=== PATIENT | female | born 1950 | race Caucasian/White ===

== ENCOUNTER 2018-05-18 01:15 | Outpatient (CLI) | payer MEDICARE, OTHER, SELFPAY ==
[2018-05-18 10:12] LABS: Hemoglobin A1C 6.2 % (4.5-6.2)
[2018-05-18 10:21] LABS: TSH (W/Ref FT4) 0.91 uIU/mL (0.358-3.74)
== END 2018-05-18 01:35 ==
PROVIDERS: PCP Family Medicine; Visit Provider Family Medicine
DX: R73.01 Impaired fasting glucose (principal); E03.9 Hypothyroidism, unspecified
CPT/HCPCS: 36415; 83036; 84443

== ENCOUNTER 2022-09-23 17:09 | Outpatient (REF) | payer OTHER, SELFPAY ==
[2022-09-23 17:47] LABS: CREATININE 1.1 mg/dL (0.55-1.02); Estimated GFR 53.39 (mL/min/1.73m2)
[2022-09-23 17:54] LABS: Anion Gap 7.2 mmol/L (3-11); BUN 21 mg/dL (7-18); CO2 29.8 mmol/L (21.0-32.0); Calcium 9.8 mg/dL (8.5-10.1); Chloride 104 mmol/L (98-107); Estimated GFR 59.86 (mL/min/1.73m2); Glucose 96 mg/dL (74-106); Potassium 4.5 mmol/L (3.5-5.1); Sodium 141 mmol/L (136-145)
== END 2022-09-23 17:10 | disposition home or self-care (01) ==
LOC: NCHCN 17:09
PROVIDERS: PCP Family Medicine; Visit Provider Nurse Practitioner Family
DX: I10 Essential (primary) hypertension (principal); D35.2 Benign neoplasm of pituitary gland
CPT/HCPCS: 80048; 82565

== ENCOUNTER 2022-10-15 02:02 | Outpatient (CLI) | payer OTHER, SELFPAY ==
--- NOTE | 2022-10-15 | DI.MRI_ITS ---
Exam(s) MR BRAIN PITUITARY WO/W EXAM: MR BRAIN PITUITARY WO/W CLINICAL HISTORY: PITUITARY ADENOMA,D35.2,POSITIONAL HEADACHE,R51.9, TECHNIQUE: Multiplanar multisequence MRI of the brain was performed. CONTRAST MATERIAL: IV Contrast: 12 mL of Dotarem contrast administered. COMPARISON: No exams were available for comparison FINDINGS: The examination is limited due to patient motion artifact. VENTRICLES AND EXTRA AXIAL SPACES: Normal in size and morphology for the patient's age. HEMORRHAGE: None. CEREBRAL PARENCHYMA: No focus of restricted diffusion to suggest acute infarct. No space-occupying le mckayla identified. There are multiple areas of hyperintense signal seen in the white matter on the FLAI R and T2 weighted images consistent with small vessel ischemic disease. MIDLINE SHIFT: None. BRAINSTEM/CEREBELLUM: Normal. CALVARIUM: Normal. ENHANCEMENT: Please see the below section under pituitary. VISUALIZED PARANASAL SINUSES/MASTOIDS: Clear. [place] OF SAGE: Normal flow void. OTHER FINDINGS: PITUITARY: Pituitary stalk is midline. There is a homogeneously enhancing mass involving the pituitary gland whi ch measures 1.3 AP by 1.7 cc by 1.5 transverse cm. It does exert mild mass effect on the optic chias m resulting in upward bowing of the chiasm. There is no involvement of the adjacent internal carotid arteries. The cavernous portions of both carotid arteries are unremarkable. IMPRESSION: 1. 1.3 AP by 1.7 cc by 1.5 transverse cm homogeneously enhancing pituitary mass. It causes mild upwa rd bowing of the optic chiasm. Findings are consistent with a pituitary macro adenoma. 2. Findings consistent with age-related cerebral atrophy and small vessel ischemic disease. DATA REPOSITORY:
[2022-10-15] MEDS: Normal Saline Flush 10 ML SYR IVP (12:31)
== END 2022-10-15 02:22 ==
LOC: DI 02:03
PROVIDERS: PCP Family Medicine; Visit Provider Nurse Practitioner Family
DX: R51.9 Headache, unspecified (principal); D35.2 Benign neoplasm of pituitary gland; I67.89 Other cerebrovascular disease; G31.89 Other specified degenerative diseases of nervous system; R41.3 Other amnesia
CPT/HCPCS: 70553

== ENCOUNTER 2022-12-25 03:13 | Outpatient (CLI) | payer OTHER, SELFPAY ==
--- NOTE | 2022-12-25 13:45 | DI.MRI_ITS ---
Exam(s) MR LOWER JOINT RT WO EXAM: MR LOWER JOINT RT WO CLINICAL HISTORY: RT KNEE PAIN, M25.561, INSTABILITY WITH WALKING TECHNIQUE: Multiplanar multisequence MRI of the knee was performed. COMPARISON: There are no plain films available time this MRI interpretation FINDINGS: EFFUSION: There is a moderate size knee joint effusion. There is a Oh cyst in the popliteal fossa which measures 6 cm length by 1.4 cm AP by 1 cm wide. It exhibits internal septations does not appe ar ruptured. MARROW:No evidence of fracture or prominent bone contusion. There are subarticular multiple degenera tive subarticular cysts in the medial compartment and marginal osteophytes. There are also degenerat skye cysts in the lateral aspect of the patella. PATELLOFEMORAL COMPARTMENT: The quadriceps tendon is intact. The patellar ligament is intact. There is full-thickness thinning of the retropatellar cartilage over the medial facet. Subarticular cysts seen posteriorly in the patella at this level. There are multiple tiny benign cysts within the lateral aspect of the patella at and above the midline with some surrounding edema. There is only m inimal cartilage narrowing over this level. CRUCIATE LIGAMENTS: The anterior cruciate ligament is intact.The posterior cruciate ligament is intac t. MEDIAL COMPARTMENT/MEDIAL MENISCUS: There is tearing involving both anterior posterior horns of the m edial meniscus. The anterior horn of the medial meniscus is significantly attenuated and extruded. Majority of the anterior horn lies between the marginal osteophytes. It exhibits prominent signal ab normality. The posterior horn of the medial meniscus exhibits complex outer 3rd tearing. The root i s intact. There is extrusion of the meniscus. Results in outward bowing of the MCL... There is full-thickness cartilage thinning over the entire weight-bearing surface of the medial femor al condyle and medial tibial plateau. Large marginal osteophytes noted. Degenerative subarticular c ysts are seen in in the medial femoral condyle. MEDIAL COLLATERAL LIGAMENT: Outward bowing noted. This results in some attenuation but there is no h igh-grade tear of the MCL. LATERAL COMPARTMENT/LATERAL MENISCUS: There is no evidence of lateral meniscal tear.Significantly les s cartilage thinning over the lateral femoral condyle and lateral tibial plateau, when compared to th e medial compartment. There are, however, marginal osteophytes also noted off the lateral compartmen t. ILIOTIBIAL BAND: Intact LATERAL COLLATERAL LIGAMENT COMPLEX: The fibular collateral ligament is intact. The biceps femoris t endon is intact.Popliteus muscle and tendon are intact. IMPRESSION: 1. Advanced degenerative changes in the medial compartment with full-thickness cartilage thinning and complex tearing of the anterior and posterior horns of the medial meniscus as well as some meniscal exclusion to level subjacent to the prominent marginal osteophytes at this level. Subarticular edema and degenerative subarticular cysts noted in medial compartment. 2. Significant patellofemoral compartment chondromalacia changes with full-thickness thinning of the retropatellar cartilage over the medial facet and moderate-advanced thinning over the lateral facet. Multiple small contiguous cysts are noted in the outer aspect of the patella with mild surrounding i ntraosseous edema. No evidence of quadriceps or patellar ligament tears. 3. Anterior and posterior cruciate ligaments are intact. No collateral ligament tears. The MCL is b owed outward by the osteophyte and meniscal findings in the medial compartment but there is no high-g rade tear of the medial collateral ligament. 4. Significantly milder degenerative changes in the lateral compartment and without obvious meniscal tear in the lateral compartment. Lateral collateral ligament complex is intact. DATA REPOSITORY:
== END 2022-12-25 03:33 ==
PROVIDERS: PCP Family Medicine; Visit Provider Nurse Practitioner Family
DX: M25.561 Pain in right knee (principal); S83.231A Complex tear of medial meniscus, current injury, right knee, initial encounter; M25.761 Osteophyte, right knee
CPT/HCPCS: 73721

== ENCOUNTER 2023-03-03 11:42 | Outpatient (REF) | payer OTHER, SELFPAY ==
[2023-03-03 16:23] LABS: ALT 17 U/L (14-59); AST 24 U/L (15-37); Albumin 3.7 g/dL (3.4-5.0); Alkaline Phosphatase 125 U/L (46-116); Anion Gap 11.5 mmol/L (3-11); BUN 24 mg/dL (7-18); Bilirubin, Total 0.4 mg/dL (0.2-1.0); CO2 23.5 mmol/L (21.0-32.0); CREATININE 1.1 mg/dL (0.55-1.02); Calcium 9.3 mg/dL (8.5-10.1); Chloride 104 mmol/L (98-107); Estimated GFR 53.39 (mL/min/1.73m2); Glucose 128 mg/dL (74-106); Potassium 4.4 mmol/L (3.5-5.1); Sodium 139 mmol/L (136-145); TSH 0.44 uIU/mL (0.36-3.74); Total Protein 7.1 g/dL (6.4-8.2)
== END 2023-03-03 11:43 | disposition home or self-care (01) ==
LOC: NCHCN 11:42
PROVIDERS: PCP Family Medicine; Visit Provider Nurse Practitioner Family
DX: I10 Essential (primary) hypertension (principal); E03.9 Hypothyroidism, unspecified
CPT/HCPCS: 80053; 84443

== ENCOUNTER → 2023-04-01 03:02 | Outpatient (CLI) | payer OTHER, SELFPAY ==
--- NOTE | 2023-04-01 10:45 | DI.MAMMO_ITS ---
Exam(s) MG MAMMO SCREENING 60 MIN DUR EXAM: MG MAMMO SCREENING 60 MIN DUR CLINICAL HISTORY: SCREENING FOR BREAST CANCER Z12.39 TECHNIQUE: Bilateral full field digital CC and MLO mammographic images were obtained with 3D tomosyn thesis and utilizing computer aided detection (CAD). COMPARISON: There are no priors for comparison at this time. FINDINGS: Masses/Architectural Distortion: Status post left lumpectomy. No suspicious masses or areas of archi tectural distortion. Microcalcifications: No suspicious pleomorphic-type are seen. Skin Thickening/Nipple Retraction: None. IMPRESSION: 1. No significant interval change with no specific features of malignancy noted. 2. Unless there is more urgent need, screening mammography is recommended, as per [employer] guidelines. BI-RADS Category 2 - Benign Findings Breast Density - Category B - Scattered areas of fibroglandular density Breast density category C or D implies that the patient has dense breast tissue. Dense breast tissue is very common and is not abnormal but dense breast tissue can make it harder to find cancer on a ma mmogram. Also, dense breast tissue may increase their breast cancer risk. This information about the result of the mammogram report was provided to the patient to raise their awareness. Use this report when you speak with the patient about their risks for breast cancer, which includes their family hist ory. At that time, you may recommend for more screening tests (Ultrasound or MRI) as they might be us eful based on their risk. A negative radiographic report should not delay biopsy if a dominant or clinically suspicious mass is present. Up to ten percent of cancers are not identified on mammography. A negative report may reinforce clinical impression. Adenosis and dense breasts may obscure an underlying neoplasm. False positive reports average 6 to 10%. Patient will receive a letter notifying them of these results.
== END ==
PROVIDERS: PCP Family Medicine; Visit Provider Nurse Practitioner Family
DX: Z12.31 Encounter for screening mammogram for malignant neoplasm of breast (principal)
CPT/HCPCS: 77063; 77067

== ENCOUNTER 2023-05-22 11:02 | Outpatient (CLI) | payer OTHER, SELFPAY ==
--- NOTE | 2023-05-22 11:28 | DI.RAD_ITS ---
Exam(s) XR STANDING ALIGNMENT XR KNEE RT 1V EXAM: XR STANDING ALIGNMENT CLINICAL HISTORY: knee pain. TECHNIQUE: 2D digital imaging was performed. Standing AP views were performed from the pelvis throu gh the ankles. COMPARISON: CR LEFT FOOT LIMITED from 03/17/2016 CR RIGHT FOOT LIMITED from 03/17/2016 CR XR KNEE RT 1V from 05/22/2023 FINDINGS: BONES: No acute fracture is present. No bony destructive lesion is seen. Leg length discrepancy: The right femoral head projects few millimeters superior to the left. JOINTS: Knees: Left knee prosthesis. No abnormal surrounding bony lucencies. Satisfactory alignment . Right knee shows severe degenerative changes of the medial femoral tibial joint space with promine nt periarticular spurring. Degenerative changes are also noted at the patellofemoral joint. Chondro calcinosis is present. The ankle joints are unremarkable. Hips: Mild degenerative changes of the right hip. Moderate joint space narrowing of the left hip how ever periarticular spurring and subchondral cyst formation of the superior acetabulum. SOFT TISSUE: Vascular clips medial right upper leg. Venous varicosities on the right. IMPRESSION: Severe degenerative changes of the right knee. Mild overall leg length discrepancy. DATA REPOSITORY: RADIATION DOSE DELIVERED:
== END 2023-05-22 11:03 | disposition home or self-care (01) ==
LOC: DIORS 11:02
PROVIDERS: PCP Nurse Practitioner Family; Referring Provider Family Medicine; Visit Provider Student in an Organized Health Care Education/Training Program
DX: M17.11 Unilateral primary osteoarthritis, right knee; Z96.652 Presence of left artificial knee joint
CPT/HCPCS: 99203; 73560; 77073

== ENCOUNTER → 2023-07-16 08:09 | Outpatient (BNVA) | payer OTHER, SELFPAY | PROVIDERS: PCP Nurse Practitioner Family; Referring Provider Nurse Practitioner Family | DX: Z01.818 Encounter for other preprocedural examination (principal); M17.11 Unilateral primary osteoarthritis, right knee ==

== ENCOUNTER 2023-07-16 09:45 | Outpatient (CLI) | payer OTHER, SELFPAY ==
[2023-07-16 09:45] LABS: HCT 45.6 % (36.0-46.0); HGB 14.8 g/dL (11.2-15.7); MCH 29.6 pg (27.0-33.0); MCHC 32.5 % (32.0-36.0); MCV 91 fL (80-95); MPV 10.3 fL (8.0-11.0); Platelet Count 264 10^3/uL (130-400); RDW 13.2 % (11.7-14.6); RDW-SD 43.8 fL; WBC 5.64 10^3/uL (4.4-10.8)
[2023-07-16 10:00] LABS: Anion Gap 10.9 mmol/L (3-11); BUN 26 mg/dL (7-18); CO2 27.1 mmol/L (21.0-32.0); CREATININE 1.1 mg/dL (0.55-1.02); Calcium 9.8 mg/dL (8.5-10.1); Chloride 102 mmol/L (98-107); Estimated GFR 53.06 (mL/min/1.73m2); Glucose 120 mg/dL (74-106); Potassium 4.1 mmol/L (3.5-5.1); Sodium 140 mmol/L (136-145)
== END 2023-07-16 09:46 | disposition home or self-care (01) ==
LOC: LBO 09:46
PROVIDERS: PCP Nurse Practitioner Family; Visit Provider Student in an Organized Health Care Education/Training Program
DX: Z01.818 Encounter for other preprocedural examination (principal); M17.11 Unilateral primary osteoarthritis, right knee
CPT/HCPCS: 36415; 80048; 85027

== ENCOUNTER 2023-08-05 16:26 | Observation (INO) | payer OTHER, SELFPAY ==
[2023-08-05] VITALS (11 sets, daily range): BP systolic 114–187; BP diastolic 57–86; PULSE 52–71; RESP 16–20; TEMP 36.2–37.2; O2SAT 95–99; BMI 26.4
--- NOTE | 2023-08-05 07:34 | W.ANESPRE ---
General Info Date of Service Date Performed: 08/05/23 Height: 5 ft Weight: 61.5 kg Body Mass Index (BMI): 26.4 Surgical Procedure: Operation Date: 08/05/23 09:55 Proposed Procedure Side Surgeon p Knee Total Arthroplasty, Cementless CR Right Francis Fowler MD Meds Allergies and Home Medications Allergies Allergy/AdvReac Type Severity Reaction Status Date / Time egg yolk Allergy Severe severe Unverified 08/05/23 07:13 vomiting,cramps venom-honey bee Allergy Severe Anaphylaxsi Unverified 08/05/23 07:13 [bee venom (honey bee)] s adhesive Allergy Intermediate Swelling/Ed Unverified 08/05/23 07:13 vinicius chlorpheniramine maleate Allergy Intermediate Hives Unverified 08/05/23 07:13 [From Chlor-Trimeton] oxycodone HCl [From Percocet] Allergy Intermediate muscle Unverified 08/05/23 07:13 aches Penicillins Allergy Intermediate Hives Unverified 08/05/23 07:13 oxycodone terephthalate AdvReac Intermediate muscle Unverified 08/05/23 07:13 [From Percodan] aches codeine AdvReac Mild sensitive, Unverified 08/05/23 07:13 a little goes a long way morphine AdvReac Mild sensitive, Unverified 08/05/23 07:13 a little goes a long way heparin (porcine) AdvReac Unknown Swelling/Ed Unverified 08/05/23 07:13 [heparin,porcine] vinicius Home Medication Medication Instructions Recorded levothyroxine 50 mcg tablet 50 mcg PO DAILY 08/24/13 propylene glycol 1 %-glycerin 0.3 1 drp OU PRN PRN 08/24/13 % eye drops (Artificial Tears (glycerin-peg)) lisinopril 20 1 tab PO DAILY 03/18/23 mg-hydrochlorothiazide 12.5 mg tablet Current Visit Medications: Current Medications Generic Name Dose Route Start Last Admin Trade Name Freq PRN Reason Stop Dose Admin Acetaminophen 1,000 mg 08/05/23 07:15 Acetaminophen 500 Mg Tab PO 09/04/23 07:14 PREOP VENUS Celecoxib 400 mg 08/05/23 07:15 Celecoxib 200 Mg Cap PO 09/04/23 07:14 PREOP VENUS Gabapentin 300 mg 08/05/23 07:15 Gabapentin 300 Mg Cap PO 09/04/23 07:14 PREOP VENUS Ringer's Solution 1,000 mls @ 80 mls/hr 08/05/23 06:00 IV 08/05/23 23:59 INFUSION VENUS Cefazolin Sodium/Dextrose 2 gm in 50 mls @ 100 mls/hr 08/05/23 06:00 Ancef Duplex IVPB 08/05/23 23:59 PREOP VENUS Tranexamic Acid 1,000 mg/ 60 mls @ 360 mls/hr 08/05/23 06:00 Sodium Chloride IV 08/05/23 23:59 PREOP VENUS IV Miscellaneous Supplies 1 each 08/05/23 06:00 Iv Access IV 08/05/23 23:59 DIRECTED VENUS Sodium Chloride 0 ml 08/05/23 06:00 Normal Saline Flush 10 Ml Syr IV 08/05/23 23:59 PRN PRN Sodium Chloride 0 ml 08/05/23 06:00 Normal Saline 10 Ml Vial IJ 08/05/23 23:59 DIRECTED PRN Sterile Water 0 ml 08/05/23 06:00 Water,Injection,Sterile 10 Ml Vial IJ 08/05/23 23:59 DIRECTED PRN PFSH Active Problems Active Problems: Problem Status Onset Code Arthritis of right knee M17.11 Fibromyalgia M79.7 Anxiety F41.9 Asthma, exercise induced J45.990 Pituitary adenoma D35.2 Medical History Medical History History of adenomatous polyp of colon History of pulmonary embolus (PE) Per pt. states when she was in here early 20's she had a blood clot in her leg that traveled to her lungs Memory impairment Hypertension Constipation Tubular adenoma of colon (08/11/17) Rectocele (02/20/14) h/o DVT/PE breast cancer Breast cancer Hypothyroid Rheumatoid arthritis Surgical History Surgical History Replacement of total knee joint Repair of umbilical hernia Diagnostic Laproscopy x 3 for endometriosis Colonoscopy - MAC (08/11/17) Breast, Mastectomy reconstruction Tobacco Smoking/Tobacco Use Status: Never Substance Use Substance use: Never Substance use type: does not use Vital Signs and Lab Results Vital Signs Most Recent Vital Signs in EMR: Most Recent Vital Signs Temp Pulse BP Pulse Ox 36.2 C L 57 L 187/78 H 99 08/05/23 07:07 08/05/23 07:07 08/05/23 07:07 08/05/23 07:07 Lab Results Blood Type / Crossmatch: No Data to Display Complete Blood Count: White Blood Count 5.64 10^3/uL (4.4-10.8) 07/16/23 09:21 Red Blood Count 5.00 10^6/uL (3.93-5.22) 07/16/23 09:21 Hemoglobin 14.8 g/dL (11.2-15.7) 07/16/23 09:21 Hematocrit 45.6 % (36.0-46.0) 07/16/23 09:21 Platelet Count 264 10^3/uL (130-400) 07/16/23 09:21 Complete Metabolic Panel: Sodium 140 mmol/L (136-145) 07/16/23 09:21 Potassium 4.1 mmol/L (3.5-5.1) 07/16/23 09:21 Chloride 102 mmol/L (98-107) 07/16/23 09:21 Carbon Dioxide 27.1 mmol/L (21.0-32.0) 07/16/23 09:21 BUN 26 mg/dL (7-18) H 07/16/23 09:21 Creatinine 1.1 mg/dL (0.55-1.02) H 07/16/23 09:21 Est GFR (CKD-EPI 2020) 53.06 (mL/min/1.73m2) 07/16/23 09:21 Calcium 9.8 mg/dL (8.5-10.1) 07/16/23 09:21 Glucose 120 mg/dL (74-106) H 07/16/23 09:21 Liver Function Panel: No Data to Display Coagulation Panel: No Data to Display Cardiac Panel: No Data to Display Arterial Blood Gas: No Data to Display Venous Blood Gas: No Data to Display Pancreas Panel: No Data to Display Thyroid Panel: No Data to Display Infectious Disease: No Data to Display Blood Cultures: No Data to Display Toxicology Panel: No Data to Display Anesthesia Assessment and Plan Anesthesia History Personal History: No History of Anesthesia Complications Family History: No Family History of Anesthesia Complications Exercise Tolerance Exercise Tolerance: Metabolic Equivalents>4 Pertinent Negatives Pertinent Negatives: No Symptoms of GERD, No Major Cardiovascular Symptoms or Complaints and No Major Pulmonary Symptoms or Complaints Cardiac & Pulmonary Exam Cardiac Exam: Normal S1/S2 Heart Sounds Pulmonary Exam: Clear Bilateral Breath Sounds Implantable Cardiac Device Does patient have a Pacemaker or an ICD?: No Airway Exam Known Difficult Airway: No Mallampati Class: 2 Mouth Opening: Normal (> 3cm) Thyromental Distance: Greater than 3 cm Neck Range of Motion: Full ROM Neck Circumference: Normal Teeth Condition: Normal Dentition ASA Classification ASA Score: ASA 3 Emergency Case?: No NPO Status NPO Status: NPO Clears >2 hours, Solids >8 hours Anesthesia Plan Resuscitation Status: Full Code Anesthesia Technique: Spinal Anesthesia Airway Planned: Natural Airway Pain Management: Surgeon and patient request nerve block Monitors Used: Standard Monitors
[2023-08-05] MEDS: Acetaminophen 500 MG TAB 1000 MG PO ×2 (07:35→19:44)
[2023-08-05] MEDS: Celecoxib 200 MG CAP 400 MG PO (07:35)
[2023-08-05] MEDS: Gabapentin 300 MG CAP PO ×2 (07:35→21:17)
[2023-08-05] MEDS: Lactated Ringers 1,000 ML 80 ML IV (07:53)
[2023-08-05] MEDS: ceFAZolin 2 GM/50 ML BAG IVPB (08:25)
--- NOTE | 2023-08-05 08:26 | W.PM.DSUDISC ---
Date of service: 08/05/23 Time of Service: 08:26 Discharge Plan Disposition Condition: Good Discharge Details Reason For Visit: R TKR Admit Date/Time: 08/05/23 16:26 Admit Provider: Francis Fowler Attending Provider: Francis Fowler Primary Care Provider: Inna Arredondo Home Meds and New Rx's Prescriptions: New celecoxib 200 mg capsule 200 mg PO BID Qty: 60 0RF tramadol 50 mg tablet 50 mg PO Q4H PRNQty: 20 0RF acetaminophen 500 mg tablet 1,000 mg PO TID Qty: 90 3RF pantoprazole 40 mg tablet,delayed release (DR/EC) 40 mg PO DAILY Qty: 30 0RF dexamethasone 4 mg tablet 4 mg PO DAILY Qty: 2 0RF gabapentin 300 mg capsule 300 mg PO QHS Qty: 14 0RF aspirin 81 mg tablet,delayed release (DR/EC) 81 mg PO BID Qty: 60 0RF Continued lisinopril-hydrochlorothiazide 20-12.5 mg tablet 1 tab PO DAILY levothyroxine 50 MCG tablet 50 mcg PO DAILY Artificial Tears(glycerin-peg) 15 ML drops 1 drp OU PRN PRN Discharge Instructions Additional Instructions: Total Knee Discharge Instructions Activity: The most important activity is to walk and to work on gentle motion (both flexion and extension). You should try to take short walks a few times a day. It is important that when resting you work on keeping the knee straight. Avoid putting a pillow behind the knee as this will encourage flexion. Work on range of motion exercises as provided by Physical Therapy. - Start outpatient physical therapy within 2 weeks. - You should wear the GENIA hose on both legs for 2 weeks. You may remove these at night. You may also use any compression sock in place of the GENIA hose. - Utilize [employer] to review exercises, see videos on exercises and obtain basic information pertaining to your surgery and your recovery. Dressing: Remove the David wrap by 2 days after your surgery and put on the GENIA stocking given to you from the hospital. Keep the surgical dressing (underneath the DAVID wrap) in place for at least one week. After the first week it may be removed and replaced with light gauze and tape or nothing. The wound and dressing may get wet after 3 days but avoid soaking the dressing or otherwise it will need to be changed. Many people prefer covering the dressing with cling wrap (saran wrap) to minimize it from getting soaked. If it gets wet, just pat dry. If it starts to peel off then it will need to be changed. Medications: - You should take Tylenol and anti-inflammatory Celebrex as your primary pain control medications. If the Celebrex is too expensive or not covered, please call the office for another alternative (Advil/Ibuprofen or Naproxen/Aleve) - You have been prescribed a stronger pain medication tramadol for breakthrough pain, take as needed as prescribed. - You have also been prescribed a stomach acid reduction agent Pantoprozole to help reduce stomach acid and reflux. - You have been prescribed Gabapentin to take at night for restlessness and nerve pain. - You will be taking Aspirin 81mg twice a day for DVT prevention unless instructed otherwise. - You have also been prescribed Decadron to take to control post-operative nausea and pain. You will start this tomorrow. - If you have constipation you should take Colace or Miralax (both [id number]). It takes most people 3-4 days to have a bowel movement. Follow-up: 2 weeks If you have any acute concerns or questions, please do not hesitate to contact the office at [phone]. You may contact Dr. Fowler with any questions after hours through the hospital at [phone] or on his cell phone at [phone]. Stand Alone Forms: Anesthesia Discharge Inst., Kylahs.Nerve Block Instructions, Migel Doshi (DSU) Referrals: Francis Fowler MD [ [facility] STAFF PHYSICIAN] - 08/17/23 1:00 pm Equipment/Supplies: Walker Activity:: Activity as Tolerated Shower/Bathe:: 72 hours Diet:: As Tolerated DS: Diagnosis Discharge Diagnosis (1) Arthritis of right knee: Status: Resolved
--- NOTE | 2023-08-05 08:55 | W.ANESNERVE ---
Nerve Block Single Injection Procedure Date and Time Date Performed: 08/05/23 Procedure Start: 08:15 Location Where Procedure Performed Procedure Location: Day Surgery Unit Reason Performed: Postoperative Analgesia Requesting Provider: Francis Fowler Timeout Performed Timeout Performed: Yes Monitoring Used ECG, Blood Pressure, SpO2 and See EMR for corresponding vital signs Sterility Sterility: Hand Hygiene, Surgical Cap, Surgical Mask, Sterile Gloves and Chlorhexidine Sedation Given During Procedure Sedation Given (Indicate Dose Given): No Sedation given Patient Mental Status Patient Mental Status: Awake Nerve Block 1st Nerve Block: Laterality: Right Block Type: Adductor Canal Ultrasound Image Saved?: Yes Needle / Catheter Used: 100mm SonoPlex II Local Anesthetic Bolus (Indicate Dose Given): Lidocaine used for local infiltration of skin, Injected in 3-5ml increments after negative blood aspiration and Bupivacaine 0.25% Dose:: 20ml Additives (Indicate Dose Given): None Ultrasound: Sterile probe cover and gel used Nerve Stimulator: Not Used Paresthesia: None Procedure Tolerated: No Complications and Patient tolerated well Procedure Outcome: Successful Performed By: Jose Jefferson
--- NOTE | 2023-08-05 10:53 | W.PM.OP ---
Date of service: 08/05/23 Time of Service: 08:30 Operative Note Operative Note DATE OF PROCEDURE: 08/05/23 PRE-OP DIAGNOSIS: Right Knee Osteoarthritis POST-OP DIAGNOSIS: same PROCEDURE: Right Total Knee Replacement SURGEON: Francis Fowler HIGH VALUE ASSOCIATE: Ponce Brewer ANESTHESIA TYPE: Spinal Refer to Anesthesia Record ESTIMATED BLOOD LOSS: 100 PATHOLOGY: none sent TOURNIQUET TIME: 0 COMPLICATIONS: None Patient was transported to: PACU Patient's condition: stable Implants: 1. Depuy Attune Cementless Cruciate Retaining Femoral Component, Size 5 2. Depuy Attune Cementless Fixed Bearing Tibial Component, Size 4 3. Depuy Attune 5x6 CR/FB Poly 4. Depuy Attune Patellar Component, Size 35 Indications: I have seen Shu in clinic for symptoms of knee arthritis, confirmed with radiographic findings. She has exhausted nonoperative methods and was having significant limitations in daily function and desired better function and less pain. I discussed the technical details of a knee replacement. I explained the risks of the procedure to include, but not limited to, bleeding, infection, pain, stiffness, fracture, damage to nerves and vessels, damage to muscles and tendons, loosening, need for repeat procedure, blood clot and cardiopulmonary demise. Despite these risks, Shu elected to proceed. Findings: There was significant signs of arthritis throughout the knee with osteophytes throughout. Procedure Description: Shu was greeted in the preoperative holding area where the correct side was identified and marked. The consent was reviewed with the patient and signed. The history and physical was updated. All questions were answered. Preoperative medications were administered: Acetaminophen 1000mg, Celebrex 400mg, and Gabapentin 300mg. An adductor canal block was then administered by the anesthesia team in the [facility]. She was taken back to the operating room. A spinal anesthestic was then administered. The patient was placed into the supine position on the operating room table. A nonsterile tourniquet was placed high onto the leg but only used for cementing. Posts were placed for positioning during the procedure. All bony prominences were well padded. Prophylactic antibiotics in the form of Cefazolin were administered. 1g of Tranxemic Acid was given intravenously within 30 minutes of incision. The right leg was then prepped with Chloraprep and draped in a standard fashion with impervious stockinette. A second prep with Chloraprep was performed prior to application of Iodine impregnated skin protection. A timeout to confirm correct identity, side and site, procedure, allergies, anesthesia, and medical concerns was performed. With the knee in some flexion, a midline incision was made overlying the knee. Full thickness skin flaps were raised once the extensor mechanism was encountered. These were raised medially and laterally. Any bleeding was controlled with electrocautery. Once the extensor mechanism was fully exposed, a medial parapatellar arthrotomy was performed in a flexed position. All bleeding from the arthrotomy and the geniculate arteries was coagulated. A medial subperiosteal peel was performed with electrocautery to the midcoronal plane. The fat pad was removed while keeping the patellar tendon protected. The anterior distal femur synovium was removed for later visualization. The ACL and PCL were resected and the anterior horn of the lateral meniscus was transected. The knee was then flexed with the patella everted. Large osteophytes from the tibia were removed. Large osteophytes from the femur were removed. Using a step drill, and based on preoperative templating, the femoral canal was entered. This was done with a step drill without any difficulty. The intramedullary distal femoral cut guide was inserted, set to a 5 degree valgus cut and 9mm cut thickness. The distal femoral cut guide was then held in position and pinned. With the soft tissues protected, the distal cut was performed. This was passed over a few times to ensure a planar cut. I then turned attention to the tibia. The extramedullary guide was placed onto the leg. The distal aspect was slid medial to adjust for position of center of ankle and stay in line with shaft of the tibia. Approximately 3-5 degrees of posterior slope was kept in the proximal cutting guide. The center of the guide was aligned with the PCL. The stylus was used to assess cut thickness. The medial side, most involved side, was set for a 4mm cut. This was then held in position and pinned into place with 2 additional pins and a cross pin for stability. The medial and lateral collateral ligaments were protected and the cut was performed. With this completed, it was assessed and noted to be of appropriate dimensions. The guide was removed. A spacer block was inserted and the knee was brought into extension. The 6mm spacer block provided full extension, without hyperextension and with stability of both the medial and lateral collateral ligaments was assessed. The pins from the femur and the tibia were then removed. The distal femur was then sized. The anterior stylus was placed onto the lateral ridge of the anterior femur. This indicated a size 5 femur. The external rotation of the guide was adjusted to 3 degrees to match the epicondylar axis, perpendicular to Cassie?s line. The 4-in-1 cutting guide was the placed. The posterior medial femur cut was evaluated and appeared of good thickness. The spacer block was inserted underneath the cutting guide and stability was confirmed in 90 degrees of flexion. An sary wing was used to confirm appropriate position of the anterior cut to avoid notching. This cutting guide was ensured to be flush on the cut surface and then pinned into place with headed pins. While protecting the soft tissues, quad tendon, and collateral ligaments, the anterior and posterior cuts were performed with a saw. The central two pins were removed and the posterior and anterior chamfers were cut next. The notch-cutting guide was placed. This was pinned to lateralize the femoral component as much as possible while keeping it flush on the cut surface. This was then pinned into position. A reciprocating saw was used to make the notch cut. A rasp smoothed the cut surfaces. The medial and lateral menisci were removed. A trial femoral component was then inserted, impacted down to the cut surfaces, and the lug holes were drilled. A provisional trial tibial component was placed and the knee was brought through range of motion. There was noted to be excellent extension and flexion. There was no significant instability. The patella was tracking without thumbs. A size 6mm polyethylene component provided the best range of motion and stability with less than 2mm gapping with medial and lateral stress and full extension without significant hyperextension. The tibial cut surface was fully exposed. The tibia was then sized as a 4. The tibia had been previously marked during trialing to correspond to the center of the tibial component to help with rotation. The trial was aligned to this ponce, approximately rotated to the medial 1/3rd of the tibial tubercle. The trial was pinned into place. The tibia was prepared with a reamer and a keel punch and lug holes. The knee was then brought into extension and the patella was measured as 22mm. Using the patellar clamp and cut guide, this was resected to a flat surface with at least 13mm of thickness remaining. The size 35 patella fit the best. This was oriented and then clamped into position. The lugs were drilled. The trial components were removed. The final components were opened on the back table. The periosteal and capsular tissues, especially posteriorly, around the knee were then systematically injected with a periarticular cocktail consisting of 246mg of Ropivacaine, 0.5mg of Epinephrine, 0.08mg of Clonidine, and 30mg of Ketorolac, diluted to 100cc. On the back table, with the implants opened, the cement was mixed. One batch of high viscosity cement was prepared with vacuum assistance. After the cement was ready a small amount was placed on the cut surface of the patella and the patellar button was clamped into position and held. While the cement was hardening, the cementless knee components were placed. Starting with the tibial component, the tibia was subluxed anteriorly and the lug holes of the component were lined up. The tibia was then impacted with an impactor and mallet until the tibial component was in contact with the tibia. The final polyethylene component was inserted. Then, the femoral component was inserted. The lug holes were aligned and the component was impacted into position. The knee was irrigated with Irrisept Chlorhexadine solution. This was allowed to sit in the knee for 3 minutes and then it was irrigated out with saline. After the cement had finally cured, approximately 15min, the clamp was removed from the patella and the knee was taken through range of motion. The patella was tracking with a no-thumbs technique. The capsule was then reapproximated with a No. 1 Vicryl at multiple locations. The capsule was finally closed with a No. 2 Stratafix, barbed suture. The second dosing of 1g TXA was started. Deep tissues were then reapproximated with 0 Vicryl and 2-0 Vicryl. The skin was closed with a running 3-0 Monocryl in a subcuticular fashion. This was reinforced with skin glue. A Mepilex silver dressing was applied along with a [id number] ELVER wrap. A CryoCuff was applied. Shu was transferred to the hospital bed without difficulty an suffering no apparent complication. Shu has a good prognosis. Physical therapy will start today and without restrictions, weight-bearing as tolerated. Aspirin 81mg BID will be used for DVT prophylaxis.
--- NOTE | 2023-08-05 11:42 | IN_ITS ---
PT Notes Visit Reasons: R TKR Physical Therapy Day Surgery Initial Evaluation Date: 08/05/2023 Referring Doctor: KANDACE Palomino PT Orders: PT CONSULT: S/P Ortho Surgery Precautions: WBAT on the R LE with AD. Patient Profile/Admitting Diagnosis: Shu is a 73-year-old female with degenerative joint disease of the right knee and status post right total knee arthroplasty on postoperative day 0. PMHX: Medical History History of adenomatous polyp of colon History of pulmonary embolus (PE) Memory impairment Hypertension Constipation Tubular adenoma of colon (08/11/17) Rectocele (02/20/14) h/o DVT/PE Breast cancer Hypothyroid Rheumatoid arthritis Surgical History Replacement of total knee joint Repair of umbilical hernia Diagnostic Laproscopy x 3 for endometriosis Colonoscopy - MAC (08/11/17) Breast, Mastectomy reconstruction Social History/Home Situation: Lives with in a private home with no steps to enter but with 5 steps leading to patient's bathroom inside the house with a rail on one side. Independent with all aspects of ADLs prior to surgery although has had increasing difficulty with mobility performance due to worsening arthritis. Equipment Owned/DME: [facility] Subjective: Complains of tingling in the R foot and numbness on the knee and proximal leg. [place] a little lightheaded. Pain at 5 /10 at beginning of session, 2-3/10 with weight bearing mostly at the knee with terminal knee extension at midstance on R. Objective: General Observation: Resting in bed. Aidan present throughout session. ELVER wraps to right LE. TEDS to left leg. Mental Status: A and O x 4, somewhat slow with following instructions related to maybe post op status? (unsure of baseline cognition) Pain: As above ROM: Right Lower Extremity: Hip flexion WFL. Hip abduction WFL. Knee flexion 30 degrees to 80 degrees. Knee extension -30 degrees. Ankle dorsiflexion WFL. Ankle plantarflexion WFL. Left Lower Extremity: Hip flexion WFL. Hip abduction WFL. Knee flexion WFL. Ankle dorsiflexion WFL. Ankle plantarflexion WFL. Strength: Right Lower Extremity: Hip flexors 4/5. Hip abductors 4/5. Knee flexors 3-/5. Knee extensors 3-/5. Ankle dorsiflexors 5/5. Ankle plantarflexors 5/5. Left Lower Extremity:Hip flexors 5/5. Hip abductors 5/5. Knee flexors 5/5. Knee extensors 5/5. Ankle dorsiflexors 5/5. Ankle plantarflexors 5/5. Sensation: Numbe on the R knee and proximal anterrior and front leg; paresthesia in R foot Bed Mobility/Transfers: Minimal cueing provided for use of B hands as needed for support, movement sequence, Ad management, and and posture to reduce fall risk and minimize pain report. Sit to stand minimal assist of 2 (PT and Nurse Sheela) and close wheelchair follow of BISHNU Pollock. Stand to sit minimal assist Bed to chair minimal assist of 2 Gait: Facilitated safe and correct performance of level surface ambulation covering a distance of up to 80 feet using front-wheeled walker with minimal assist of 2 and close wheelchair follow-up by BISHNU Pollock. Repetitive buckling seen needing assistance of two and moderate verbal cueing for limb advancement, R knee locking, weight shifting, AD management, and posture to minimize falling. Patient had difficulty following movement sequence throughout. Appeared having difficulty following recommended sequence for safe limb advancement despite simple, slow, and repetitive provision of instructions. Stairs: Guided patient with safe and correct negotiation of 3 x 4 inch steps and 2 x 6 inch steps while holding onto bilateral rails with minimal assist of 2 and moderate to maximal verbal cueing for safe and correct technique. Patient with episodes of significant buckling during ascent, minimal buckling during descent needing knee lock from PT each time. Balance: Static Sitting: Normal Dynamic Sitting: Normal Static Standing: Fair Dynamic Standing: Fair Special Tests: Mobility Limitations Standardized Measure [facility] AM-PAC 6 clicks Basic Mobility Inpatient Short Form: Raw Score: 12 CMS Score: 69% deficit Informed Consent/Education: Patient instructed in purpose of PT consult. Agreeable to trying out a second session to see if her R knee stability improves. BOth her and her were advisded that admission for continued monitoring and functional mobility training may be needed prior to going home. ASESSMENT: L quad activation weak/impaired causing intermittent buckling during level surface ambulation and stairs training. Level of alertness and ability to follow instructions seem to be impaired (unsure of patient's baseline cognitive level). Increased risk for falls and re-injury high at this time. Patient need to walk over 30 feet of uncovered walkway before reaching entrance of house and caregiver ability to provide physical support for patient appears limited. Will plan on doing a second visit to reassess R knee stability and will recommend admission as needed to patient and to orthopedic surgeon per protocol. Patient presents with clinical signs and symptoms consistent with current/admitting diagnoses that have resulted to mobility limitations, gait instability, generalized weakness, and impairment of motor control as demonstrated by the following impairment level findings: 1. Decreased strength to R knee major muscle groups 2. Impaired standing balance 3. Limitation of joint range of motion in R knee Impairments are contributing to the following functional limitations: 1. Inability to safely ambulate without assistive device 2. Increase completion time for mobility ADL performance 3. Increased fall risk Patient is assessed as a 02880 moderate complexity based on the following: History: 73-year-old female with impairment level findings, functional norris itations, and past medical history as indicated above Examination: Demonstrable impairment in strength, balance, and mobility level with underlying impairments and functional limitations as documented above Presentation: Evolving Decision Makin moderate complexity Goals: N/A. PT evaluation and 1-2 treatment sessions only for functional mobility training using recommended AD and for HEP instruction. Plan of Care/Treatment Plan: N/A. PT evaluation and 1-2 treatment session only for functional mobility training using recommended AD and for HEP instruction. DISCHARGE RECOMMENDATIONS: Admission to medsurg unit for continued monitoring and functional mobility training to reduce fall risk at home. PT to re-evalaute per protocol. TREATMENT CODE/TIME: 9716 2 x 20 minutes for 1 unit, 31278 x 16 minutes for 1 unit beginning at 11:42 AM. Thank you for the opportunity to participate in the care of this patient. Please sign an return this page within 30 days if you agree with the above POC. Thank you! Physician Signature Date [facility] Jaelyn Rachel PT, DPT, CLT [facility], [place]
--- NOTE | 2023-08-05 12:50 | W.ANESPOSTOP ---
Postoperative Evaluation Date, Time and Location Date Performed: 08/05/23 Time Performed: 12:50 Patient Location: Day Surgery Unit Vital Signs Most Recent Imported Vital Signs: Most Recent Vital Signs Temp Pulse Resp BP Pulse Ox 36.3 C L 71 16 146/82 H 98 08/05/23 10:58 08/05/23 12:03 08/05/23 10:58 08/05/23 12:03 08/05/23 12:03 Pain Score Most Recent Pain Score: Most Recent Pain Score Pain Level 2 08/05/23 12:03 Assessment Mental Status: Awake (Alert & Oriented to Patient Baseline) Airway and Respiratory Function: Patent airway with normal (patient baseline) respiratory exam Cardiovascular Function: Hemodynamically Stable Hydration Status: Adequately Hydrated Nausea & Vomiting: No Nausea or Vomiting Pain: Pain is tolerable per patient Peripheral Nerve Block: Regional nerve block not resolved at time of post operative discharge
--- NOTE | 2023-08-05 13:49 | PT.INTREAT ---
PT Notes Visit Reasons: R TKR Physical Therapy Day Surgery Treatment Note Date: 08/05/2023 Precautions: WBAT on the R LE with AD. Subjective: Needed to use the bathroom and so Nurse Sheela and Nurse Lizbet assisted patient. Buckling in R knee persisted. Patient had a hard time following instructions too during said transfer. Bed Mobility/Transfers: Minimal cueing provided for use of B hands as needed for support, movement sequence, Ad management, and and posture to reduce fall risk and minimize pain report. Sit to stand minimal assist of 2 (PT and Nurse Coker) and close wheelchair follow of BISHNU Pollock. Stand to sit minimal assist Bed to chair minimal assist of 2 Gait: Facilitated safe and correct performance of level surface ambulation covering a distance of up to 40 feet using front-wheeled walker with minimal assist of 2 (PT and Nurse Lizbet) and close wheelchair follow-up by Nurse Coker. Repetitive buckling seen needing assistance of two and moderate verbal cueing for limb advancement, R knee locking, weight shifting, AD management, and posture to minimize falling. Patient had difficulty following movement sequence throughout. Appeared having difficulty following recommended sequence for safe limb advancement despite simple, slow, and repetitive provision of instructions. Had a significant buckling at end of walk which nearly caused patient to lose balance and required moderate to maximal assistance from PT and Nurse Lizbet, Nurse Coker was quick to move wheelchair right awayy behind patient to prevent a fall. Stairs: Deferred stairs activity for safety reasons Balance: Static Sitting: Normal Dynamic Sitting: Normal Static Standing: Poor Dynamic Standing: Poor ASSESSMENT: With second visit, R knee stability remains compromised. R quad activation weak/impaired causing intermittent buckling during level surface ambulation and stairs training. Level of alertness and ability to follow instructions seem to be impaired (unsure of patient's baseline cognitive level). Increased risk for falls and re-injury high at this time. Patient need to walk over 30 feet of uncovered walkway before reaching entrance of house and caregiver ability to provide physical support for patient appears limited. Recommended admission to [facility] for continued observation and functional mobility training with patient to Nurse Coker, Nurse ballard, and Dr. Fontana. Goals: N/A. PT evaluation and 1-2 treatment sessions only for functional mobility training using recommended AD and for HEP instruction. Plan of Care/Treatment Plan: N/A. PT evaluation and 1-2 treatment session only for functional mobility training using recommended AD and for HEP instruction. DISCHARGE RECOMMENDATIONS: [facility] monitoring and functional mobility training to reduce fall risk at home. PT to re-evalaute per protocol. TREATMENT CODE/TIME: 95543 x 13 minutes for 1 unit beginning at 13:49 PM.
[2023-08-05] MEDS: traMADol 50 MG TAB PO (16:12)
[2023-08-05] MEDS: ceFAZolin 1 GM/50 ML BAG IVPB ×2 (16:13→23:26)
[2023-08-05] MEDS: Celecoxib 200 MG CAP PO (19:44)
[2023-08-06 04:12] VITALS: BP 151/67; PULSE 56; RESP 16; TEMP 36; O2SAT 96
[2023-08-06] MEDS: Levothyroxine 50 MCG TAB PO (06:05)
[2023-08-06] MEDS: ceFAZolin 1 GM/50 ML BAG IVPB (07:40)
[2023-08-06] MEDS: Celecoxib 200 MG CAP PO (07:40)
[2023-08-06] MEDS: Acetaminophen 500 MG TAB 1000 MG PO ×2 (07:40→13:51)
[2023-08-06] MEDS: Lisinopril 20 MG TAB PO (07:40)
[2023-08-06] MEDS: hydroCHLOROthiazide 12.5 MG TAB PO (07:45)
[2023-08-06 09:10] VITALS: BP 105/68; PULSE 60; RESP 20; TEMP 36.5; O2SAT 95
[2023-08-06] MEDS: traMADol 50 MG TAB PO (09:20)
--- NOTE | 2023-08-06 09:38 | PT.INIE ---
PT Notes Visit Reasons: R TKR Physical Therapy Inpatient Initial Evaluation Date: 08/06/2023 Referring Doctor: KANDACE Palomino PT Orders: PT CONSULT: S/P Ortho Surgery Precautions: WBAT on the R LE with AD. Patient Profile/Admitting Diagnosis: Shu is a 73-year-old female with degenerative joint disease of the right knee and status post right total knee arthroplasty on postoperative day 1. PMHX: Medical History History of adenomatous polyp of colon History of pulmonary embolus (PE) Memory impairment Hypertension Constipation Tubular adenoma of colon (08/11/17) Rectocele (02/20/14) h/o DVT/PE Breast cancer Hypothyroid Rheumatoid arthritis Surgical History Replacement of total knee joint Repair of umbilical hernia Diagnostic Laproscopy x 3 for endometriosis Colonoscopy - MAC (08/11/17) Breast, Mastectomy reconstruction Social History/Home Situation: Lives with in a private home with no steps to enter but with 5 steps leading to patient's bathroom inside the house with a rail on one side. Independent with all aspects of ADLs prior to surgery although has had increasing difficulty with mobility performance due to worsening arthritis. Equipment Owned/DME: FWW Subjective: Complains of achiness in the R knee, 3-4/10 on VAS. Denied lightheadedness, chest pain, and headache throughout. Nurse Radha gave patient a pain pill prior to this morning's walk. Objective: General Observation: Resting in bed. ELVER wraps to right LE. TEDS to left leg. Mental Status: A and O x 4, somewhat slow with following instructions related to maybe post op status? (unsure of baseline cognition) Pain: As above ROM: Right Lower Extremity: Hip flexion WFL. Hip abduction WFL. Knee flexion 30 degrees to 80 degrees. Knee extension -30 degrees. Ankle dorsiflexion WFL. Ankle plantarflexion WFL. Left Lower Extremity: Hip flexion WFL. Hip abduction WFL. Knee flexion WFL. Ankle dorsiflexion WFL. Ankle plantarflexion WFL. Strength: Right Lower Extremity: Hip flexors 4/5. Hip abductors 4/5. Knee flexors 3-/5. Knee extensors 3-/5. Ankle dorsiflexors 5/5. Ankle plantarflexors 5/5. Left Lower Extremity:Hip flexors 5/5. Hip abductors 5/5. Knee flexors 5/5. Knee extensors 5/5. Ankle dorsiflexors 5/5. Ankle plantarflexors 5/5. Sensation: Intact as to pain and light pressure in B LE Bed Mobility/Transfers: Minimal cueing provided for use of B hands as needed for support, movement sequence, Ad management, and and posture to reduce fall risk and minimize pain report. Sit to stand contact guard assist Stand to sit contact guard assist Bed to chair contact guard assist Gait: Facilitated safe and correct performance of level surface ambulation covering a distance of up to 50 feet using front-wheeled walker with minimal assist of PT and close wheelchair follow-up by GRAZYNA Canales. Ability to follow safe movement sequence improved today. Minimal verbal cueing given to tense up R quad at heels trike and midstance before advancing the L foot. Emphaszied smaller steps on the right to allow for better mechnaical advantage for the R quad to extend the knee with each step. Stairs: Cleared GRAZYNA Canales to continue with stair negotiation technique. Please see RETAIL PHARMACIST notes for this morning. Balance: Static Sitting: Normal Dynamic Sitting: Normal Static Standing: Fair Dynamic Standing: Fair Special Tests: Mobility Limitations Standardized Measure [facility] AM-PAC 6 clicks Basic Mobility Inpatient Short Form: Raw Score: 18 CMS Score: 47% deficit Informed Consent/Education: Patient was instructed in purpose of PT consult and plan of care. Agreeable to proceed with established PT POC to achieve personal goals. Trained patient with correct performance of exercises below to maximize motor control, joint flexibility, soft tissue extensibility of the R knee musculature: Access Code: [email or web address] URL: [email or web address] Date: 08/05/2023 Prepared by: Jaelyn Rachel Exercises - Supine Quad Set - 1 x daily - 7 x weekly - 1 sets - 10 reps - 5 hold - Supine Heel Slide - 1 x daily - 7 x weekly - 1 sets - 10 reps - 5 hold - Supine Ankle Pumps - 1 x daily - 7 x weekly - 1 sets - 10 reps - 5 hold - Small Range Straight Leg Raise - 1 x daily - 7 x weekly - 1 sets - 10 reps - 5 hold - Seated September - 1 x daily - 7 x weekly - 1 sets - 10 reps - 5 hold For ASESSMENT: L quad activation improved today compared to yesterday. Level of alertness and ability to follow instructions improved as well. Patient need to walk over 30 feet of uncovered walkway before reaching entrance of house and caregiver ability to provide physical support for patient appears limited. Patient presents with clinical signs and symptoms consistent with current/admitting diagnoses that have resulted to mobility limitations, gait instability, generalized weakness, and impairment of motor control as demonstrated by the following impairment level findings: 1. Decreased strength to R knee major muscle groups 2. Impaired standing balance 3. Limitation of joint range of motion in R knee Impairments are contributing to the following functional limitations: 1. Inability to safely ambulate without assistive device 2. Increase completion time for mobility ADL performance 3. Increased fall risk Patient is assessed as a 89384 moderate complexity based on the following: History: 73-year-old female with impairment level findings, functional limitations, and past medical history as indicated above Examination: Demonstrable impairment in strength, balance, and mobility level with underlying impairments and functional limitations as documented above Presentation: Evolving Decision Makin moderate complexity Goals: Goals X1 week 1. Supine-Sit independent 2. Sit-Supine independent 3. Sit-Stand independent 4. Stand-Sit independent with FWW 5. Bed-Chair independent with FWW 6. Chair-Bed independent with FWW 7. Independent gait on level surface with use of FWW for at least 300 feet without report of pain nor dyspnea 8. Independent stair negotiation while holding onto B rails for at least 3 steps without report of pain nor dyspnea 9. Independent with home exercise program 10. Good static and dynamic standing balance/tolerance Plan of Care/Treatment Plan: 1-2x/day, 7 days/week x 1 week. Plan of care has been reviewed with the RETAIL PHARMACIST providing the service under Physical Therapy direction. Initiate Physical Therapy intervention for pain management as needed, strengthening, bed mobility, transfers, gait, stairs, balance training, and use of assistive device. DISCHARGE RECOMMENDATIONS: Home when medically cleared by orthopedic surgeon. Recommend outpatient PT services in order to optimize functional mobility outcomes and facilitate return to independent community ambulation without an assistive device. TREATMENT CODE/TIME: 25377 x 20 minutes for 1 unit, 98335 x 20 minutes for 1 unit beginning at 8:45 AM. Thank you for the opportunity to participate in the care of this patient. Please sign an return this page within 30 days if you agree with the above POC. Thank you! Jaelyn Rachel PT, DPT, CLT [facility] [place], [place]
--- NOTE | 2023-08-06 11:14 | PT.INTREAT ---
Date of service: 08/06/23 Time of Service: 09:26 PT Notes Visit Reasons: R TKR Inpatient Physical Therapy Treatment Note [facility] Date: 08/06/23 PRECAUTIONS: Fall, standard, activity as tolerated. WBAT RLE with AD SUBJECTIVE: Patient reports low-grade achiness in back of right knee. Hoping to go home today. SECOND AND THIRD TREATMENTS: Patient complains of headache, feeling foggy. OBJECTIVE: Patient encountered walking with DPT Jaelyn Rachel, agreeable to change in therapists. SECOND TREATMENT: Patient encountered in Pierce's pose in bed. Agreeable to therapy. ?THIRD TREATMENT: Patient encountered in Pierce's pose in bed. Agreeable to therapy. ? PAIN: 4/10 in right quad and right posterior knee. VITALS: monitored by nursing staff. ? ? ? BED MOBILITY/TRANSFERS? Rolling L/R: not assessed Supine-sit: independent ? Sit-supine: Set up assist? Sit-stand: CGA ? Stand-sit: CGA ? Bed-Chair: CGA ? Chair-bed: CGA Provided skilled cues and instruction on performance and technique throughout. Gait Training ([id number]): Direct one-on-one instruction and skilled instruction in: [] employing an assistive device [] modified weight-bearing status [x] movement sequencing [] turning and movement with proper form [x] Provided verbal cues for equipment management and technique [x] Provided instruction in gait pattern [] Patient education regarding pacing and breathing techniques to maximize activity tolerance? GAIT? Assistive Device: FWW? Weight bearing: WBAT RLE with AD Assist: CGA on level surface. CGA to MAX assist on stairs. ? Distance:? 200 feet ? Deviation: Patient demonstrates good awareness of tensing R quad to lock knee across level ground. Reports knee feels achy but fine and reportedly much more stable today. ? STAIRS: Patient ascends and descends 5 six inch stairs with CGA. Patient ascends first step with right leg leading, right leg berta. Patient is steadied by the gait belt and single handrail, does not contact the ground with any part of her body other than her feet. Verbal cue to lead ascending with unaffected leg. Patient's right knee berta again on the second step when she shifts her weight to lift left leg onto next stair. Verbal cue to tense quad, lock knee. Patient ascends the remaining 3 stairs CGA with no issues. Descends without issue after verbal cues for gait sequence.? THIRD TREATMENT: This clinician checks patient's recall of gait sequence prior to ascending stairs with patient. Patient incorrectly states that the surgical leg leads when ascending stairs. ? ASSESSMENT:? Patient may still be feeling after effects of anesthesia, between feeling foggy and having suboptimal recall of gait sequence. This clinician is concerned that patient will guess wrong at home and sustain a fall. PLAN: Recommend keeping patient one more day for continued gait and stair training for best possible patient outcomes. TREATMENT CODE/TIME: 8 minutes beginning at 9:26, 24 minutes beginning at 11:26, and 9 minutes beginning at 14:33 for a total of 41 minutes today.
[2023-08-06 12:19] VITALS: BP 104/62; PULSE 55; RESP 16; TEMP 36.3; O2SAT 97
[2023-08-06 15:16] VITALS: BP 126/77; PULSE 57; RESP 16; TEMP 36.6; O2SAT 98
--- NOTE | 2023-08-06 15:21 | W.PM.PROGNOT ---
Date of Service Date of service: 08/06/23 Time of Service: 09:05 Subjective Subjective Interval history since last seen: No acute concerns. She has had some mild pain overnight, responsive to Tramadol. She still had some buckling when up with nursing but thinks it's better. No numbness or tingling. No fever or chills. Exam Narrative Exam Narrative: Sitting upright in the bed. NAD. AAOx3. RLE dressing c/d/i. Minimal swelling. Able to SLR but does so with some reluctance. Initially, resistant to hold against resistance to knee extension but with encouragement was able to do so but with some Objective Last Vital Signs Temp 36.6 C 08/06/23 15:16 Pulse 57 L 08/06/23 15:16 Resp 16 08/06/23 15:16 BP 126/77 08/06/23 15:16 Pulse Ox 98 08/06/23 15:16
--- NOTE | 2023-08-06 15:42 | CHAPLAIN ---
Shu was resting in bed when I visited. She told me she has a headache. She said she may be discharged today but wondered if the headache would delay that. She asked for more ice water, explaining that it seemed to help.
--- NOTE | 2023-08-06 16:20 | PDOC.CMIN ---
Date of service: 08/06/23 Time of Service: 16:20 Care Management Initial Assmt Initial Assessment REASON FOR HOSPITALIZATION:: R total knee replacement PREVIOUS FUNCTIONAL STATUS/SOCIAL/FAMILY SUPPORTS:: Shu lives in [place] with her S/O, Aidan. Together they have three dogs. Shu is a , and has three children and five grand children, who all live out of area. She has five siblings, and her mother, who has dementia, is in a half-way in [place]. Shu states that she worries that her memory might be slipping. She is independent with ADLs, and uses a FWW at baseline. CURRENT FUNCTIONAL STATUS:: Shu was sitting up in bed when CM met with her. She was pleasant and engaged well in conversation. She stated that she expects to return home today, and her s/o will drive her home. She talked a lot about her family, especially her mother who is in a half-way. PT evaluated her and had some concerns about her using stairs; she has five stairs at home to go from one floor to another where the bathroom is. She may need to remain overnight to have more time working with PT for safety. CM will continue to follow. ADVANCE DIRECTIVES:: Not on file. Has patient been provided with info about the portal/API?: Yes Did the patient sign up for the portal?: No CODE STATUS:: Full Code INSURANCE COVERAGE / FINANCIAL ISSUES:: [employer] MCR replacement; CURRENT HOME/COMMUNITY SERVICES/EQUIPMENT:: FWW, cane PRIMARY CARE PHYSICIAN:: Inna Arredondo POTENTIAL DISCHARGE NEEDS:: Evaluations for further needs, follow up appointments. PATIENT/FAMILY EDUCATION NEEDS:: Review discharge instructions and limitations, discussion of self care needs including ask me three. ANTICIPATED BARRIERS TO DISCHARGE:: None. TRANSPORTATION:: via private vehicle by s/o. PLAN:: Anticipate Shu will return home once medically cleared. Her s/o, Aidan, will drive her home when medically cleared. She will follow up with her PCP and discharge plan of care. CM will continue to follow. PFSH All Active Problems (Updated 08/06/23 @ 12:07 by Tera Pino RN) History of total right knee replacement (Acute 08/05/23) Fibromyalgia (Acute) Anxiety (Chronic) Asthma, exercise induced (Acute) Pituitary adenoma (Acute) Medical History (Updated 08/06/23 @ 12:07 by Tera Pino RN) History of adenomatous polyp of colon History of pulmonary embolus (PE) Per pt. states when she was in here early 20's she had a blood clot in her leg that traveled to her lungs Memory impairment Hypertension Constipation Tubular adenoma of colon (08/11/17) Rectocele (02/20/14) h/o DVT/PE breast cancer Breast cancer Hypothyroid Rheumatoid arthritis Surgical History (Updated 08/06/23 @ 12:07 by Tera Pino RN) Replacement of total knee joint Repair of umbilical hernia Diagnostic Laproscopy x 3 for endometriosis Colonoscopy - MAC (08/11/17) Breast, Mastectomy reconstruction Social History Smoking/Tobacco Use Status: Never Smoking risk assessment performed?: Yes Drug use: Never Substance use type: does not use Housing: house Current gender identity: female Do you feel safe at home: Yes Do you feel safe in your relationship?: Yes SDOH(Care Management) Screening Will the Patient Participate in the Screening?: Yes Do you worry about having a steady place to live?: no Problems where you live: no known problems In the past 12 months, have you had to go without electric, gas, oil or water in your home?: no Have you or anyone in your house had to go without enough food to eat?: no Has lack of transportation kept you from medical appointments or from doing things needed for daily living?: no Has anyone in your support network made you feel unsafe for any reason?: no
--- NOTE | 2023-08-06 16:25 | W.PM.DS.N ---
Date of service: 08/06/23 Time of Service: 16:25 DS: Diagnosis Discharge Diagnosis (1) Arthritis of right knee: Status: Resolved Discharge Plan Disposition Patient Disposition: Home Condition: Good Discharge Details Reason For Visit: R TKR Admit Date/Time: 08/05/23 16:26 Admit Provider: Francis Fowler Attending Provider: Francis Fowler Primary Care Provider: Inna Arredondo Hospital Course Hospital Course: Patient was admitted to the medical/surgical floor following the procedure due to some continued weakness and difficulty with stair navigation. The surgery was tolerated well without any notable medical, surgical, or anesthetic complications. Mobilization began postoperatively. He was voiding spontaneously. Vitals were stable. Physical therapy worked with the patient and was cleared for discharge home with significant treatment with quadriceps control and activation. No acute medical issues. Pain was controlled on oral regimen. Home Meds and New Rx's Prescriptions: New celecoxib 200 mg capsule 200 mg PO BID Qty: 60 0RF tramadol 50 mg tablet 50 mg PO Q4H PRNQty: 20 0RF acetaminophen 500 mg tablet 1,000 mg PO TID Qty: 90 3RF pantoprazole 40 mg tablet,delayed release (DR/EC) 40 mg PO DAILY Qty: 30 0RF dexamethasone 4 mg tablet 4 mg PO DAILY Qty: 2 0RF gabapentin 300 mg capsule 300 mg PO QHS Qty: 14 0RF aspirin 81 mg tablet,delayed release (DR/EC) 81 mg PO BID Qty: 60 0RF Continued lisinopril-hydrochlorothiazide 20-12.5 mg tablet 1 tab PO DAILY levothyroxine 50 MCG tablet 50 mcg PO DAILY Artificial Tears(glycerin-peg) 15 ML drops 1 drp OU PRN PRN Discharge Instructions Additional Instructions: Total Knee Discharge Instructions Activity: The most important activity is to walk and to work on gentle motion (both flexion and extension). You should try to take short walks a few times a day. It is important that when resting you work on keeping the knee straight. Avoid putting a pillow behind the knee as this will encourage flexion. Work on range of motion exercises as provided by Physical Therapy. - Start outpatient physical therapy within 2 weeks. - You should wear the GENIA hose on both legs for 2 weeks. You may remove these at night. You may also use any compression sock in place of the GENIA hose. - Utilize [employer] to review exercises, see videos on exercises and obtain basic information pertaining to your surgery and your recovery. Dressing: Remove the David wrap by 2 days after your surgery and put on the GENIA stocking given to you from the hospital. Keep the surgical dressing (underneath the DAVID wrap) in place for at least one week. After the first week it may be removed and replaced with light gauze and tape or nothing. The wound and dressing may get wet after 3 days but avoid soaking the dressing or otherwise it will need to be changed. Many people prefer covering the dressing with cling wrap (saran wrap) to minimize it from getting soaked. If it gets wet, just pat dry. If it starts to peel off then it will need to be changed. Medications: - You should take Tylenol and anti-inflammatory Celebrex as your primary pain control medications. If the Celebrex is too expensive or not covered, please call the office for another alternative (Advil/Ibuprofen or Naproxen/Aleve) - You have been prescribed a stronger pain medication Tramadol for breakthrough pain, take as needed as prescribed. - You have also been prescribed a stomach acid reduction agent Pantoprozole to help reduce stomach acid and reflux. - You have been prescribed Gabapentin to take at night for restlessness and nerve pain. - You will be taking Aspirin 81mg twice a day for DVT prevention unless instructed otherwise. - You have also been prescribed Decadron to take to control post-operative nausea and pain. - If you have constipation you should take Colace or Miralax (both [id number]). It takes most people 3-4 days to have a bowel movement. Follow-up: 2 weeks If you have any acute concerns or questions, please do not hesitate to contact the office at [phone]. You may contact Dr. Fowler with any questions after hours through the hospital at [phone] or on his cell phone at [phone]. Stand Alone Forms: Anesthesia Discharge InstNaomi Joshua.Nerve Block Instructions, Migel Doshi (DSU) Referrals: Francis Fowler MD [ [facility] STAFF PHYSICIAN] - 08/17/23 1:00 pm Activity:: Activity as Tolerated Equipment/Supplies:: Walker Diet:: As Tolerated Discharge Orders Discharge Orders: Discharge Order (Routine); Ordered 08/06/23 Ordered By: Rene Brewer DS: Summary Time Spent with Patient providing and/or coordinating discharge services: Less than 30 minutes Status at Discharge Functional status at discharge: uses cane/walker Overall status at discharge: patient is progressing back to baseline Mental Status: mental status grossly normal Speech and Movement: speech and movement normal Mood: congruent mood Affect: normal affect Quality:SDOH Health Related Social Needs: No Data to Display Exam Narrative Exam Narrative: Sitting up in the bed. No acute distress. Alert and orient x 3. David wrap is removed. There is some ecchymosis seen over the anterior knee. She is able straight leg raise without a lag. She is able to do so against some resistance. This is much improved from previous examination. The knee is stable to varus and valgus stress. Sensation intact to light touch over the deep and superficial peroneal nerve and tibial nerve. Psych Mental Status: mental status grossly normal Speech and Movement: speech and movement normal Mood: congruent mood Affect: normal affect DS: Data Vitals/I&O Vitals and I&O: Vital Signs Temperature 36.6 C 08/06/23 15:16 Temperature Source Tympanic 08/06/23 15:16 Pulse 57 L 08/06/23 15:16 Pulse Rhythm Regular 08/06/23 14:14 Respiratory Rate 16 08/06/23 15:16 Respiratory Effort Normal 08/06/23 14:14 Respiratory Depth Normal 08/06/23 14:14 Respiratory Pattern Normal 08/06/23 14:14 Blood Pressure 126/77 08/06/23 15:16 Blood Pressure Mean 103 08/05/23 08:02 Blood Pressure Position Sitting 08/05/23 08:02 Pulse Oximetry 98 08/06/23 15:16 Oxygen Delivery Method Room Air 08/06/23 15:16 Oxygen Flow Rate 0 08/06/23 15:16 Pain Level 4 08/06/23 13:51 Comment 0815 post procedure vitals taken. Pt tolerated intervention with mild discomfort. Pt denies ringing in her ears, numbness around her mouth and no metallic taste in her mouth. This nurse in room with patient until pt was taken to the OR around 0823, Herlinda Wallace RN. 08/05/23 08:02 Intake & Output 08/05/23 08/06/23 08/06/23 23:59 11:59 23:59 Intake Total 1082 / 1852 790 / 790 Output Total 250 / 250 Balance 1082 / 1752 540 / 540 Intake: IV 722 / 1132 50 / 50 Oral 360 / 720 740 / 740 Output: Urine 250 / 250 Other: Urine Color Yellow Urine Appearance Clear Clear Comment pT says she has voided today and was helped to the toilet by a nurse. urine output was not recorded at that time. Emesis Description None Voiding Methods Toilet PFSH All Active Problems History of total right knee replacement (Acute 08/05/23) Fibromyalgia (Acute) Anxiety (Chronic) Asthma, exercise induced (Acute) Pituitary adenoma (Acute) Medical History History of adenomatous polyp of colon History of pulmonary embolus (PE) Per pt. states when she was in here early 20's she had a blood clot in her leg that traveled to her lungs Memory impairment Hypertension Constipation Tubular adenoma of colon (08/11/17) Rectocele (02/20/14) h/o DVT/PE breast cancer Breast cancer Hypothyroid Rheumatoid arthritis Surgical History Replacement of total knee joint Repair of umbilical hernia Diagnostic Laproscopy x 3 for endometriosis Colonoscopy - MAC (08/11/17) Breast, Mastectomy reconstruction Social History Smoking/Tobacco Use Status: Never Smoking risk assessment performed?: Yes Drug use: Never Substance use type: does not use Housing: house Current gender identity: female Do you feel safe at home: Yes Do you feel safe in your relationship?: Yes Time Spent with Patient Time Spent with Patient: <45 minutes Time was spent: obtaining and/or reviewing separately otained hiistory, ordering medications,tests, procedures and counseling the patient
== END 2023-08-06 16:52 | disposition home or self-care (01) ==
LOC: SUR 16:35 → MS 16:35
PROVIDERS: Admitting Provider Student in an Organized Health Care Education/Training Program; PCP Nurse Practitioner Family; Visit Provider Student in an Organized Health Care Education/Training Program
PROC: (CPT 27447; principal; 2023-08-05 08:30)
DX: M17.11 Unilateral primary osteoarthritis, right knee (principal); M79.7 Fibromyalgia; F41.9 Anxiety disorder, unspecified; J45.990 Exercise induced bronchospasm; D35.2 Benign neoplasm of pituitary gland; Z86.711 Personal history of pulmonary embolism; R41.3 Other amnesia; I10 Essential (primary) hypertension; K59.00 Constipation, unspecified; Z85.3 Personal history of malignant neoplasm of breast; M06.9 Rheumatoid arthritis, unspecified; E03.9 Hypothyroidism, unspecified
CPT/HCPCS: 27447; C1776; 76942; 96365; 96366; 97116; 97162; 97530; G0378; J0665; J0690; J1100; J2250; J2401; J2405; J2704

== ENCOUNTER 2023-08-17 15:45 | Outpatient (CLI) | payer OTHER, SELFPAY ==
--- NOTE | 2023-08-17 12:45 | DI.RAD_ITS ---
Exam(s) XR STANDING ALIGNMENT XR KNEE RT 1V EXAM: XR STANDING ALIGNMENT and XR knee RT 1 V CLINICAL HISTORY: 1ST POST OP S/P R TKA. TECHNIQUE: 2D digital imaging was performed. Five images were obtained. COMPARISON: CR XR STANDING ALIGNMENT from 05/22/2023 CR XR KNEE RT 1V from 05/22/2023 FINDINGS: BONES: Degenerative changes are seen in the hips, left greater than right. The patient has bilateral total knee replacements. The orthopedic hardware appear in good position. No suspicious lucencies are seen in or about the orthopedic hardware. The ankles are well maintained.There is no significant leg length discrepancy. SOFT TISSUE: There are surgical clips seen in the soft tissues of the right inguinal region and media l to the knee. IMPRESSION: Bilateral total knee replacements. DATA REPOSITORY: RADIATION DOSE DELIVERED:
== END 2023-08-17 15:46 | disposition home or self-care (01) ==
LOC: DIORS 15:45
PROVIDERS: PCP Nurse Practitioner Family; Visit Provider Student in an Organized Health Care Education/Training Program
DX: Z96.651 Presence of right artificial knee joint (principal); Z47.1 Aftercare following joint replacement surgery
CPT/HCPCS: 73560; 77073

== ENCOUNTER → 2023-09-17 08:45 | Outpatient (BNVA) | payer OTHER, SELFPAY | PROVIDERS: PCP Nurse Practitioner Family; Referring Provider Nurse Practitioner Family; Visit Provider Student in an Organized Health Care Education/Training Program | DX: Z47.1 Aftercare following joint replacement surgery (principal); Z96.651 Presence of right artificial knee joint ==

== ENCOUNTER → 2023-10-29 09:00 | Outpatient (BNVA) | payer OTHER, SELFPAY | PROVIDERS: PCP Nurse Practitioner Family; Referring Provider Nurse Practitioner Family; Visit Provider Student in an Organized Health Care Education/Training Program | DX: Z47.1 Aftercare following joint replacement surgery (principal); M76.31 Iliotibial band syndrome, right leg; Z96.651 Presence of right artificial knee joint ==

== ENCOUNTER → 2024-02-01 10:23 | Outpatient (BNVA) | payer OTHER, SELFPAY | PROVIDERS: PCP Nurse Practitioner Family; Referring Provider Nurse Practitioner Family; Visit Provider Student in an Organized Health Care Education/Training Program | DX: Z47.1 Aftercare following joint replacement surgery (principal); Z96.651 Presence of right artificial knee joint; M76.31 Iliotibial band syndrome, right leg | CPT/HCPCS: 99213 ==

== ENCOUNTER → 2024-02-15 01:22 | Outpatient (CLI) | payer OTHER, SELFPAY ==
--- NOTE | 2024-02-15 | DI.MRI_ITS ---
Exam(s) MR PELVIS WO EXAM: MR PELVIS WO CLINICAL HISTORY: Sciatica, rt side, M54.31 TECHNIQUE: Multiplanar multisequence MRI of Pelvis was performed COMPARISON: No exams were available for comparison FINDINGS: Bones: There is no fracture or contusion pattern. No bone marrow edema is seen. The SI joints and s ymphysis pubis are well maintained. There are subchondral cysts seen in the acetabular rims bilateral ly. Musculotendinous structures: Musculotendinous structures demonstrate no abnormality. Intrapelvic str uctures demonstrate no significant abnormality. No evidence of a soft tissue mass is seen in or aroun d the lumbosacral nerve root. IMPRESSION: Unremarkable MRI of the sacrum and coccyx. DATA REPOSITORY:
--- NOTE | 2024-02-15 | DI.MRI_ITS ---
Exam(s) MR LUMBAR SPINE WO EXAM: MR LUMBAR SPINE WO CLINICAL HISTORY: LOW BACK PAIN M54.50. TECHNIQUE: Multiplanar multisequence MRI of the Lumbar spine was performed. COMPARISON: No exams were available for comparison FINDINGS: Bones: The last intervertebral disc space is designated the L5/S1 level for the numbering purpose of this examination. The vertebral body heights are well maintained. There is a left convex lumbar sco liosis. There are degenerative endplate signal changes at multiple levels of the lumbar spine. Ther e is a round area of hyperintense signal on the T1 and T2 weighted images in the L2 vertebral body mo st suggestive of a hemangioma or fatty rest. Cord: The conus tip ends at the L1 level. It is of normal size and signal intensity. T12-L1: No disc herniations or bulges are present. No central spinal canal or neural foraminal stenos is. L1-2: No disc herniations or bulges are present. There is a mild diffuse disc bulge. Degenerative ch anges of the facets are seen.No significant central spinal canal stenosis is seen. There is mild margaret ateral neural foraminal stenosis. L2-3: Degenerative changes of the facets are seen. No focal disc herniation is present. There is mo derate right neural foraminal stenosis. No significant left neural foraminal stenosis. L3-4: Degenerative changes of the facets are present, right greater than left. No significant centra l spinal canal stenosis is seen. No focal disc herniation is present. There is marked right neural foraminal stenosis minimal left neural foraminal stenosis. L4-5: Degenerative changes of the facets are present. There is mild narrowing of the central spinal canal. Ttlm-cj-rhezvwrl bilateral neural foraminal stenosis is present. L5-S1: No disc herniations or bulges are present. There are degenerative changes of the facets. No s ignificant central spinal canal stenosis is seen.There is marked narrowing of the left neural foramen . No significant right neural foraminal stenosis is present. Soft tissues: The visualized SI joints and sacrum are well maintained. The paraspinal soft tissues ar e unremarkable. Visualized abdominal organs: There are bilateral simple renal cysts. No follow-up is recommended. IMPRESSION: Multilevel degenerative changes in the lumbar spine resulting in central spinal canal and neural fora osmany stenosis as described above. DATA REPOSITORY:
== END ==
PROVIDERS: PCP Nurse Practitioner Family; Visit Provider Nurse Practitioner Family
DX: M54.31 Sciatica, right side (principal); M48.061 Spinal stenosis, lumbar region without neurogenic claudication
CPT/HCPCS: 72148; 72195

== ENCOUNTER → 2024-03-24 09:41 | Outpatient (BNVA) | payer OTHER, SELFPAY | PROVIDERS: PCP Nurse Practitioner Family; Referring Provider Nurse Practitioner Family; Visit Provider Nurse Practitioner Adult Health | DX: G31.84 Mild cognitive impairment of uncertain or unknown etiology (principal) | CPT/HCPCS: 99215 ==

== ENCOUNTER 2024-03-24 11:09 | Outpatient (CLI) | payer OTHER, SELFPAY ==
[2024-03-24 12:16] LABS: Vitamin B12 335 pg/mL (193-986)
== END 2024-03-24 11:10 | disposition home or self-care (01) ==
LOC: LBO 11:09
PROVIDERS: PCP Nurse Practitioner Family; Visit Provider Nurse Practitioner Adult Health
DX: G31.84 Mild cognitive impairment of uncertain or unknown etiology (principal)
CPT/HCPCS: 36415; 82607

== ENCOUNTER 2024-06-09 21:53 | Outpatient (REF) | payer MEDICARE, OTHER, SELFPAY ==
[2024-06-09 19:01] LABS: Anion Gap 8.4 mmol/L (3-11); BUN 17 mg/dL (7-18); CO2 29.6 mmol/L (21.0-32.0); CREATININE 1.1 mg/dL (0.55-1.02); Calcium 9.2 mg/dL (8.5-10.1); Chloride 106 mmol/L (98-107); Estimated GFR 52.73 (mL/min/1.73m2); Glucose 125 mg/dL (74-106); Potassium 4.5 mmol/L (3.5-5.1); Sodium 144 mmol/L (136-145)
[2024-06-09 19:15] LABS: TSH (W/Ref FT4) 1.12 uIU/mL (0.36-3.74)
== END 2024-06-09 21:54 | disposition home or self-care (01) ==
LOC: NCHCN 21:53
PROVIDERS: PCP Nurse Practitioner Family; Visit Provider Nurse Practitioner Family
DX: E03.9 Hypothyroidism, unspecified (principal); I10 Essential (primary) hypertension
CPT/HCPCS: 80048; 84443

== ENCOUNTER 2024-06-15 01:54 | Outpatient (CLI) | payer MEDICARE, OTHER, SELFPAY ==
--- NOTE | 2024-06-15 | DI.MAMMO_ITS ---
Exam(s) US BREAST LT COMPLETE MG MAMMO SCREENING 60 MIN DUR EXAM: MG MAMMO SCREENING 60 MIN DUR AND COMPLETE LEFT BREAST ULTRASOUND CLINICAL HISTORY: Screening, Z12.31; h/o breast CA. TECHNIQUE: Bilateral full field digital CC and MLO mammographic images were obtained with 3D tomosyn thesis and utilizing computer aided detection (CAD). ALSO PERFORMED spot compression views finding posteriorly in left breast. Also performed COMPLETE LEFT BREAST ULTRASOUND fluid in all 4 quadrants as well the left axilla COMPARISON: Prior mammograms were reviewed. This patient underwent remote left breast lumpectomy fo r malignancy over 40 years ago. FINDINGS: MAMMOGRAM: There are no new right breast findings. In the left breast the lumpectomy site is again noted. Up against the chest wall at this level there is a 1.6 x 1.4 cm nodule which does not have typical appearance of a benign intramammary lymph node. Additional exaggerated CC view also reveal similar finding. There are no malignant-appearing microcalcification groups in either breast We proceeded with left breast ultrasound... COMPLETE LEFT BREAST ULTRASOUND: At the peripheral 2 o'clock position (10 cm from the nipple) there is a concerning 1.3 x 1.2 cm sligh tly taller than wider solid nodule which corresponds to the finding on the mammogram. It exhibits ne utral through transmission. There are no other focal ultrasound findings in all 4 quadrants. However, scanning of the left axilla reveals a mildly abnormal appearing lymph node which contains a 0.5 x 0.5 cm solid-appearing nodule in its periphery. IMPRESSION: 1. No radiographic evidence of malignancy in the right breast. 2. In the left breast there is a solid nodule posteriorly up against the chest wall (peripheral 2 o'c lock position) as described above which is somewhat suspicious and should undergo ultrasound guided b iopsy. In addition, there is a slightly suspicious appearing left axillary node as described above w hich should also be biopsied. Both of the above findings are on the side of her prior remote left breast lumpectomy. Findings and recommendations were discussed by myself with the patient today. Findings are recommendations were called by myself to provider Inna Arredondo today. BI-RADS Category 4 - Suspicious Abnormality: Biopsy should be considered Breast Density - Category B - Scattered areas of fibroglandular density Breast density Category C or D implies that the patient has dense breast tissue. Dense breast tissue can make it harder to find cancer on a mammogram. Dense breast tissue is also associated with an incr eased risk of breast cancer. This information about the result of the mammogram report was provided to the patient to raise their awareness. Use this report when you speak with the patient about their risks for breast cancer, which includes their family history. At that time, you may recommend additional screening tests (Ultrasoun d or MRI) as these tests may add significant information. A negative radiographic report should not delay biopsy if a dominant or clinically suspicious mass is present. Up to ten percent of cancers are not identified on mammography. A negative report may reinforce clinical impression. Adenosis and dense breasts may obscure an underlying neoplasm. False positive reports average 6 to 10%. Patient will receive a letter notifying them of these results.
== END 2024-06-15 02:14 ==
PROVIDERS: PCP Nurse Practitioner Family; Visit Provider Nurse Practitioner Family
DX: Z12.31 Encounter for screening mammogram for malignant neoplasm of breast (principal); R92.8 Other abnormal and inconclusive findings on diagnostic imaging of breast; N63.23 Unspecified lump in the left breast, lower outer quadrant; R92.323 Mammographic fibroglandular density, bilateral breasts
CPT/HCPCS: 76642; 77063; 77067

== ENCOUNTER 2024-07-14 01:29 | Outpatient (CLI) | payer MEDICARE, OTHER, SELFPAY ==
--- NOTE | 2024-07-14 | DI.US_ITS ---
Exam(s) US NEEDLE LOCAL BREAST WO RAD EXAM: LEFT BREAST MASS,US GUIDED BX COMPARISON: No exams were available for comparison TECHNIQUE: Ultrasound performed using standard protocol. FINDINGS: Sonography was provided for Dr. Duran during the performance of a left breast biopsy. Please refe r to the procedure report for complete details. DATA REPOSITORY:
--- NOTE | 2024-07-14 13:15 | BREAST_PTH ---
PATIENT: Shu Kaur LOC: [facility] U#:[id number] AGE/SX: 74/F ROOM: RE07/14/[address]: Cheri Duran : 1950 BED: DIS: 07/14/2024 SPEC #: [id number] RECD: 07/14/24 13:22 STATUS: JUAN M REQ #: [id number] NITZA: 07/14/24 13:[address]: Cheri Duran DEPT: Surgical Specimen RECD BY: Katia Christie ENTERED: 07/14/24 13:24 SP TYPE: Breast OTHR DR: Inna Arredondo Tissues: 1 - BREAST BX NEEDLE Procedures: GROSS AND MICRO LEVEL 4 [id number] IPEX ESTROGEN/PROGESTERONE RECEPTOR IPEX STAIN Comments: [id number]
== END 2024-07-14 01:49 ==
PROVIDERS: PCP Nurse Practitioner Family; Visit Provider Surgery
DX: C50.412 Malignant neoplasm of upper-outer quadrant of left female breast (principal)
CPT/HCPCS: 19083; 76942; 88305; 88360

== ENCOUNTER 2024-08-08 15:25 | Outpatient (CLI) | payer MEDICARE, OTHER, SELFPAY ==
--- NOTE | 2024-08-08 10:15 | DI.RAD_ITS ---
Exam(s) XR KNEE RT 2V AP,LAT EXAM: XR KNEE RT 2V AP,LAT CLINICAL HISTORY: ANNUAL F/U R TKA. TECHNIQUE: 2D digital imaging was performed. Two images were obtained. AP and lateral views were ob tained. COMPARISON: CR XR KNEE RT 1V from 08/17/2023 CR XR STANDING ALIGNMENT from 08/17/2023 FINDINGS: BONES: There are stable post operative changes of a right total knee arthroplasty present. No fractu re or dislocation. JOINTS: The orthopedic hardware is in good position. No evidence of hardware loosening. SOFT TISSUE: Surgical clips are again seen in the soft tissues of the posterior medial knee. IMPRESSION: Stable right total knee arthroplasty. DATA REPOSITORY: RADIATION DOSE DELIVERED:
== END 2024-08-08 15:26 | disposition home or self-care (01) ==
LOC: DIORS 15:25
PROVIDERS: PCP Nurse Practitioner Family; Visit Provider Physician Assistant
DX: Z96.651 Presence of right artificial knee joint (principal); Z47.1 Aftercare following joint replacement surgery
CPT/HCPCS: 99213; 73560

== ENCOUNTER 2024-09-16 00:26 | Outpatient (CLI) | payer MEDICARE, OTHER, SELFPAY ==
--- NOTE | 2024-09-16 | DI.MRI_ITS ---
Exam(s) MR BRAIN PITUITARY WO/W EXAM: MR BRAIN PITUITARY WO/W CLINICAL HISTORY: BENIGN NEOPLASM PITUITARY GLAND D35.2 TECHNIQUE: Multiplanar multisequence MRI of the brain was performed. CONTRAST MATERIAL: IV Contrast: 11 mL of Dotarem contrast administered. COMPARISON: MR MR BRAIN PITUITARY WO/W from 10/15/2022 FINDINGS: The examination is limited due to patient motion artifact. VENTRICLES AND EXTRA AXIAL SPACES: Normal in size and morphology for the patient's age. HEMORRHAGE: None. CEREBRAL PARENCHYMA: No focus of restricted diffusion to suggest acute infarct. No space-occupying le mckayla identified. There are several areas of hyperintense signal seen in the white matter on the FLAIR and T2 weighted images most consistent with chronic microvascular ischemic disease. MIDLINE SHIFT: None. BRAINSTEM/CEREBELLUM: Normal. CALVARIUM: Normal. ENHANCEMENT: No suspicious enhancement identified. VISUALIZED PARANASAL SINUSES/MASTOIDS: Clear. TELLER OF SAGE: Normal flow void. PITUITARY GLAND: There is again seen a pituitary mass measuring 1.4 AP by 1.6 transverse by 1.9 crani ocaudad cm. This compares to 1.3 x 1.5 x 1.7 cm on the prior examination. It does exert pressure on the optic chiasm. There is no infiltration in the adjacent internal carotid arteries. The mass leigh ann ws homogeneous enhancement following contrast administration. OTHER FINDINGS: IMPRESSION: No significant change in size of the pituitary mass compared to the prior examination. DATA REPOSITORY:
[2024-09-16] MEDS: Gadoterate meglumine 20 ML SYRINGE 11 ML IVP (09:29)
[2024-09-16] MEDS: Normal Saline Flush 10 ML SYR IVP (09:30)
== END 2024-09-16 00:46 ==
PROVIDERS: PCP Nurse Practitioner Family; Visit Provider Family Medicine
DX: D35.2 Benign neoplasm of pituitary gland (principal)
CPT/HCPCS: 70553

== ENCOUNTER → 2024-11-28 09:58 | Outpatient (BNVA) | payer MEDICARE, OTHER, SELFPAY | PROVIDERS: PCP Nurse Practitioner Family; Visit Provider Student in an Organized Health Care Education/Training Program | DX: Z47.1 Aftercare following joint replacement surgery (principal); M76.31 Iliotibial band syndrome, right leg; Z96.651 Presence of right artificial knee joint | CPT/HCPCS: 20610; 99214; J1010 ==

== ENCOUNTER → 2024-12-26 10:53 | Outpatient (BNVA) | payer MEDICARE, OTHER, SELFPAY | PROVIDERS: PCP Nurse Practitioner Family; Referring Provider Nurse Practitioner Family; Visit Provider Nurse Practitioner Adult Health | DX: G31.84 Mild cognitive impairment of uncertain or unknown etiology (principal) | CPT/HCPCS: 99214 ==

== ENCOUNTER 2025-01-12 11:57 | Outpatient (REF) | payer MEDICARE, OTHER, SELFPAY ==
[2025-01-12 16:58] LABS: Calculated LDL 163 mg/dL (<100); Cholesterol 251 mg/dL (<200); HDL Cholesterol 68 mg/dL (>or=50); TSH (W/Ref FT4) 0.28 uIU/mL (0.36-3.74); Triglyceride 102 mg/dL (<150)
[2025-01-12 17:45] LABS: FREE T4 1.14 ng/dL (0.76-1.46)
[2025-01-13 15:12] LABS: Hemoglobin A1C 6.3 % (<5.7)
== END 2025-01-12 11:58 | disposition home or self-care (01) ==
LOC: NCHCN 11:57
PROVIDERS: PCP Nurse Practitioner Family; Visit Provider Student in an Organized Health Care Education/Training Program
DX: E03.9 Hypothyroidism, unspecified (principal); R73.03 Prediabetes; E78.5 Hyperlipidemia, unspecified
CPT/HCPCS: 80061; 83036; 84439; 84443

== ENCOUNTER 2025-01-23 11:10 | Outpatient (CLI) | payer MEDICARE, OTHER, SELFPAY ==
--- NOTE | 2025-01-23 11:00 | DI.RAD_ITS ---
Exam(s) XR HIP RT COMPLETE AP PELVIS EXAM: XR HIP RT COMPLETE AP PELVIS CLINICAL HISTORY: right hip pain. TECHNIQUE: 2D digital imaging was performed. Two views COMPARISON: CR XR STANDING ALIGNMENT from 05/22/2023 MR MR PELVIS WO from 02/15/2024 FINDINGS: BONES: No acute fracture is present. No bony destructive lesion is seen. JOINTS: No dislocation present. Mild bilateral hip joint space narrowing. Periarticular spurring bilaterally. Chondrocalcinosis SOFT TISSUE: Show article clips right groin in left pelvis. IMPRESSION: No wejz-ta-trmpvaob degenerative changes of both hips. DATA REPOSITORY: RADIATION DOSE DELIVERED:
== END 2025-01-23 11:11 | disposition home or self-care (01) ==
LOC: DIORS 11:11
PROVIDERS: PCP Nurse Practitioner Family; Referring Provider Nurse Practitioner Family; Visit Provider Student in an Organized Health Care Education/Training Program
DX: M25.551 Pain in right hip (principal); T84.82XA Fibrosis due to internal orthopedic prosthetic devices, implants and grafts, initial encounter; M76.31 Iliotibial band syndrome, right leg; Z96.651 Presence of right artificial knee joint; Z98.890 Other specified postprocedural states
CPT/HCPCS: 99214; 73502

== ENCOUNTER 2025-02-13 14:18 | Outpatient (CLI) | payer MEDICARE, OTHER, SELFPAY ==
[2025-02-13 14:14] LABS: Abs Immature Grans 0.01 10^3/uL (0.0-0.06); HCT 37.0 % (36.0-46.0); HGB 12.2 g/dL (11.2-15.7); Immature Grans % 0.4 %; MCH 30.1 pg (27.0-33.0); MCHC 33.0 % (32.0-36.0); MCV 91 fL (80-95); MPV 9.1 fL (8.0-11.0); Platelet Count 178 10^3/uL (130-400); RBC 4.05 10^6/uL (3.93-5.22); RDW 14.2 % (11.7-14.6); RDW-SD 46.5 fL; WBC 2.59 10^3/uL (4.4-10.8)
[2025-02-13 14:31] LABS: ALT 18 U/L (14-59); AST 17 U/L (15-37); Albumin 3.9 g/dL (3.4-5.0); Alkaline Phosphatase 129 U/L (46-116); Anion Gap 8.7 mmol/L (3-11); BUN 22 mg/dL (7-18); Bilirubin, Total 0.3 mg/dL (0.2-1.0); CO2 27.3 mmol/L (21.0-32.0); Calcium 9.7 mg/dL (8.5-10.1); Chloride 101 mmol/L (98-107); Estimated GFR 43.15 (mL/min/1.73m2); Glucose 88 mg/dL (74-106); Potassium 4.7 mmol/L (3.5-5.1); Sodium 137 mmol/L (136-145); Total Protein 7.2 g/dL (6.4-8.2)
== END 2025-02-13 14:19 | disposition home or self-care (01) ==
LOC: LBO 14:19
PROVIDERS: PCP Nurse Practitioner Family; Visit Provider Internal Medicine Hematology & Oncology
DX: C50.812 Malignant neoplasm of overlapping sites of left female breast (principal); Z17.0 Estrogen receptor positive status [ER+]
CPT/HCPCS: 36415; 80053; 85025

== ENCOUNTER 2025-02-14 11:18 | Outpatient (CLI) | payer MEDICARE, OTHER, SELFPAY ==
--- NOTE | 2025-02-14 11:15 | RT.EKG_ITS ---
APPROVED REPORT Exam: Resting ECG Reason for Exam: BREAST CA Patient Location: O HR:50 bpm ECG Measurements Heart Rate 50 AXIS IA 185 P -26 QRSd 87 QRS -37 QT 433 T 32 QTc 395 Conclusion Sinus rhythm...normal P axis, V-rate 50- 99 Left axis deviation...QRS axis (-30,-90)
== END 2025-02-14 11:19 | disposition home or self-care (01) ==
PROVIDERS: PCP Nurse Practitioner Family
DX: C50.912 Malignant neoplasm of unspecified site of left female breast (principal); I45.9 Conduction disorder, unspecified
CPT/HCPCS: 93005; 93010

== ENCOUNTER 2025-02-22 09:11 | Day surgery (SDC) | payer MEDICARE, OTHER, SELFPAY ==
[2025-02-22] VITALS (45 sets, daily range): BP systolic 119–181; BP diastolic 57–116; PULSE 39–60; RESP 9–28; TEMP 36.2–36.6; O2SAT 94–100; BMI 25.2
--- NOTE | 2025-02-22 07:24 | W.PM.DSUDISC ---
Date of service: 02/22/25 Discharge Plan Disposition Patient Disposition: Home Condition: Good Discharge Details Reason For Visit: R TKR arthroscopy Attending Provider: Francis Fowler Primary Care Provider: Inna Arredondo Home Meds and New Rx's Prescriptions: New hydrocodone-acetaminophen 5-325 mg tablet 1 tab PO Q6H PRN (Reason: pain) Qty: 6 0RF ibuprofen 600 mg tablet 600 mg PO TID PRN (Reason: pain) Qty: 90 0RF Continued aspirin 325 mg tablet 325 mg PO DAILY lisinopril-hydrochlorothiazide 20-12.5 mg tablet 1 tab PO DAILY levothyroxine 50 MCG tablet 50 mcg PO DAILY acetaminophen 500 mg tablet 1,000 mg PO TID Qty: 90 3RF Discharge Instructions Stand Alone Forms: [facility] Knee Arthroscopy Equipment/Supplies: Partial Weight Bearing Crutches Activity:: Activity as Tolerated Remove Dressings/Wound Care:: 72 hours Shower/Bathe:: 72 hours Diet:: As Tolerated Discharge Orders Discharge Orders: Discharge Order (Routine); Ordered 02/22/25 Ordered By: Rene Brewer DS: Diagnosis Discharge Diagnosis (1) Arthrofibrosis of total knee arthroplasty: Status: Acute
--- NOTE | 2025-02-22 08:13 | W.ANESPRE ---
General Info Date of Service Date Performed: 02/22/25 Height: 5 ft Weight: 58.513 kg Body Mass Index (BMI): 25.2 Surgical Procedure: Operation Date: 02/22/25 11:25 Proposed Procedure Side Surgeon p Knee Arthroscopy Synovectomy Right Francis Fowler MD Meds Allergies and Home Medications Allergies Allergy/AdvReac Type Severity Reaction Status Date / Time egg yolk Allergy Severe severe Verified 02/22/25 09:45 vomiting,cramps venom-honey bee (bee venom Allergy Severe Anaphylaxsi Verified 02/22/25 09:45 (honey bee)) s adhesive Allergy Intermediate Swelling/Ed Verified 02/22/25 09:45 vinicius chlorpheniramine maleate Allergy Intermediate Hives Verified 02/22/25 09:45 (From Chlor-Trimeton) oxycodone HCl (From Percocet) Allergy Intermediate muscle Verified 02/22/25 09:45 aches Penicillins Allergy Intermediate Hives Verified 02/22/25 09:45 oxycodone terephthalate AdvReac Intermediate muscle Verified 02/22/25 09:45 (From Percodan) aches codeine AdvReac Mild sensitive, Verified 02/22/25 09:45 a little goes a long way morphine AdvReac Mild sensitive, Verified 02/22/25 09:45 a little goes a long way heparin (porcine) AdvReac Unknown Swelling/Ed Verified 02/22/25 09:45 (heparin,porcine) vinicius Home Medication ?Medication ?Instructions ?Recorded levothyroxine 50 mcg tablet 50 mcg PO DAILY 08/24/13 lisinopril 20 1 tab PO DAILY 03/18/23 mg-hydrochlorothiazide 12.5 mg tablet aspirin 325 mg tablet 325 mg PO DAILY 03/24/24 acetaminophen 500 mg tablet 1,000 mg PO TID PRN 02/22/25 hydrocodone 5 mg-acetaminophen 325 1 tab PO Q6H PRN pain #6 tabs 02/22/25 mg tablet ibuprofen 600 mg tablet 600 mg PO TID PRN pain #90 tabs 02/22/25 Current Visit Medications: Current Medications Generic Name Dose Route Start Last Admin Trade Name Freq PRN Reason Stop Dose Admin Acetaminophen 1,000 mg 02/22/25 06:00 Acetaminophen 500 Mg Tab PO 02/22/25 23:59 PREOP VENUS Acetaminophen 650 mg 02/22/25 07:23 Acetaminophen 325 Mg Tab PO 03/24/25 07:22 Q4H PRN PRN Hydrocodone Bitart/Acetaminophen 0 tab 02/22/25 07:23 Hydrocodone 5/Acetaminophen 325 Tab PO 03/24/25 07:22 Q3H PRN PRN Pain Celecoxib 400 mg 02/22/25 06:00 Celecoxib 200 Mg Cap PO 02/22/25 23:59 PREOP VENUS Ringer's Solution 1,000 mls @ 80 mls/hr 02/22/25 06:00 IV 02/22/25 23:59 INFUSION VENUS Cefazolin Sodium/Dextrose 2 gm in 50 mls @ 100 mls/hr 02/22/25 06:00 Ancef Duplex IVPB 02/22/25 23:59 PREOP VENUS Tranexamic Acid/Sodium Chloride 1,000 mg in 100 mls @ 600 mls/hr 02/22/25 06:00 IVPB 02/22/25 23:59 PREOP VENUS IV Miscellaneous Supplies 1 each 02/22/25 06:00 Iv Access IV 02/22/25 23:59 DIRECTED VENUS Sodium Chloride 0 ml 02/22/25 06:00 Normal Saline Flush 10 Ml Syr IV 02/22/25 23:59 PRN PRN Sodium Chloride 0 ml 02/22/25 06:00 Normal Saline 10 Ml Vial IJ 02/22/25 23:59 DIRECTED PRN Sterile Water 0 ml 02/22/25 06:00 Water,Injection,Sterile 10 Ml Vial IJ 02/22/25 23:59 DIRECTED PRN PFSH Active Problems Active Problems: Problem Status Onset Code Arthrofibrosis of total knee arthroplasty Acute T84.82XA Ductal carcinoma of left breast Acute C50.912 Breast mass seen on mammogram Acute N63.0 Mild cognitive impairment Acute G31.84 Iliotibial band syndrome of right side Acute M76.31 Fibromyalgia Acute M79.7 Anxiety Chronic F41.9 Asthma, exercise induced Acute J45.990 Pituitary adenoma Acute D35.2 Medical History Medical History Prolapsed uterus Midline cystocele Hyperlipidemia Breast cancer in female History of adenomatous polyp of colon History of pulmonary embolus (PE) Per pt. states when she was in here early ' she had a blood clot in her leg that traveled to her lungs Memory impairment Hypertension Constipation Tubular adenoma of colon (08/11/17) Rectocele (02/20/14) h/o DVT/PE breast cancer Breast cancer Hypothyroid Rheumatoid arthritis Surgical History Surgical History Hx of cataract surgery History of total right knee replacement (08/05/23) Replacement of total knee joint Repair of umbilical hernia Diagnostic Laproscopy x 3 for endometriosis Colonoscopy - MAC (08/11/17) Breast, Mastectomy reconstruction Tobacco Smoking/Tobacco Use Status: Never Passive smoking exposure: No Alcohol Alcohol Intake: current Alcohol intake frequency: holidays/special occasions only Details: RARE Substance Use Substance use: Never Substance use type: does not use Vital Signs and Lab Results Lab Results Complete Blood Count: WBC, (4.4-10.8) 2.59 10^3/uL L 02/13/25, 14:05 RBC, (3.93-5.22) 4.05 10^6/uL 02/13/25, 14:05 Hgb, (11.2-15.7) 12.2 g/dL 02/13/25, 14:05 Hct, (36.0-46.0) 37.0 % 02/13/25, 14:05 Plt Count, (130-400) 178 10^3/uL 02/13/25, 14:05 Complete Metabolic Panel: Sodium, (136-145) 137 mmol/L 02/13/25, 14:05 Potassium, (3.5-5.1) 4.7 mmol/L 02/13/25, 14:05 Chloride, (98-107) 101 mmol/L 02/13/25, 14:05 Carbon Dioxide, (21.0-32.0) 27.3 mmol/L 02/13/25, 14:05 BUN, (7-18) 22 mg/dL H 02/13/25, 14:05 Creatinine, (0.55-1.02) 1.3 mg/dL H 02/13/25, 14:05 Est GFR (CKD-EPI 2020), (mL/min/1.73m2) 43.15 02/13/25, 14:05 Calcium, (8.5-10.1) 9.7 mg/dL 02/13/25, 14:05 Albumin, (3.4-5.0) 3.9 g/dL 02/13/25, 14:05 Glucose, (74-106) 88 mg/dL 02/13/25, 14:05 Liver Function Panel: ALT, (14-59) 18 U/L 02/13/25, 14:05 AST, (15-37) 17 U/L 02/13/25, 14:05 Anesthesia Assessment and Plan Anesthesia History Personal History: No History of Anesthesia Complications Family History: No Family History of Anesthesia Complications Exercise Tolerance Exercise Tolerance: Metabolic Equivalents>4 Cardiac & Pulmonary Exam Cardiac Exam: Normal S1/S2 Heart Sounds Pulmonary Exam: Clear Bilateral Breath Sounds Implantable Cardiac Device Does patient have a Pacemaker or an ICD?: No Airway Exam Known Difficult Airway: No Mallampati Class: 2 Mouth Opening: Normal (> 3cm) Thyromental Distance: Greater than 3 cm Neck Range of Motion: Full ROM Neck Circumference: Normal Teeth Condition: Normal Dentition ASA Classification ASA Score: ASA 2 Emergency Case?: No NPO Status NPO Status: NPO Clears >2 hours, Solids >8 hours Anesthesia Plan Resuscitation Status: Full Code Anesthesia Technique: General Anesthesia Airway Planned: LMA Monitors Used: Standard Monitors Preoperative Comments:: 74 yo female with multiple allergies for knee scope. sig PMHx: HTN (lisinopril, HCTZ), asthma (not since she moved from [place]), pituitary adenoma (she seems unaware of this, last MRI without change in size), PE (distant history due to varicose veins), hypothyroid (levothyroxine), fibromyalgia, anxiety Denies GERD. Approp NPO, currently hungry. ECG: sinus, LAD. Previous Anes: - TKA, spinal with chloro, no sedation, no issues. - colo, prop, natural airway, no issues
[2025-02-22] MEDS: Acetaminophen 500 MG TAB 1000 MG PO (10:00)
[2025-02-22] MEDS: Celecoxib 200 MG CAP 400 MG PO (10:00)
[2025-02-22] MEDS: Lactated Ringers 1,000 ML 80 ML IV (10:01)
[2025-02-22] MEDS: ceFAZolin 2 GM/50 ML BAG IVPB (10:34)
[2025-02-22] MEDS: TRANEXAMIC ACID/SOD. CHL. 1,000 MG/100 ML BAG 600 MG IVPB (10:44)
[2025-02-22] MEDS: Bupivacaine 0.25% Pres-Free 30 ML VIAL (11:05)
[2025-02-22] MEDS: EPINEPHrine 10 MG/10 ML ML (11:05)
[2025-02-22] MEDS: fentaNYL 100 MCG/2 ML VIAL IVP ×5 (11:46→12:31)
--- NOTE | 2025-02-22 11:51 | W.ANESPOSTOP ---
Postoperative Evaluation Date, Time and Location Date Performed: 02/22/25 Time Performed: 11:51 Patient Location: PACU Vital Signs Most Recent Imported Vital Signs: Most Recent Vital Signs Temp Pulse Resp BP Pulse Ox 36.3 C L 46 L 13 134/65 100 02/22/25 11:46 02/22/25 11:46 02/22/25 11:46 02/22/25 11:46 02/22/25 11:46 Pain Score Most Recent Pain Score: Most Recent Pain Score Pain Level 7 02/22/25 11:42 Assessment Mental Status: Awake (Alert & Oriented to Patient Baseline) Airway and Respiratory Function: Patent airway with normal (patient baseline) respiratory exam Cardiovascular Function: Hemodynamically Stable Hydration Status: Adequately Hydrated Nausea & Vomiting: No Nausea or Vomiting Pain: Pain is tolerable per patient Peripheral Nerve Block: Patient did not receive a nerve block
--- NOTE | 2025-02-22 16:34 | W.PM.OP ---
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 Nonoperative measures were exhausted but disability due to lack of motion persisted. I discussed knee arthroscopy with synovectomy with maniuplation with the patient. I reviewed the risks of the procedure to include, but not limited to, bleeding, infection, pain, continued stiffness, recurrence, blood clot. Despite these risks, the patient elected to proceed. Findings: There is dense scar tissue mostly in the lateral compartment of the knee with some interposed tissue from the lateral soft tissues between the polyethylene and the lateral femur and attached to the anterior soft tissues. A complete synovectomy was performed releasing scar tissue in the suprapatellar space early where there was notable frayed tissue in the interposed SPECT down and there is adequate space seen around the polyethylene and no interposed tissue. Procedure Description: Shu was greeted in the preoperative holding area where the correct side was identified and marked. The consent was reviewed with the patient and signed. The history and physical was updated. All questions were answered. She was taken back to the operating room. The patient was placed into the supine position on the operating room table. All bony prominences were well padded. Prophylactic antibiotics in the form of Cefazolin were administered. The right leg was then prepped with Chloraprep and draped in a standard fashion with stockinette and extremity drape. A timeout to confirm correct identity, side and site, procedure, allergies, anesthesia, and medical concerns was performed. A standard lateral portal was made at the lateral border of the patella tendon in line with the inferior pole of the patella, soft spot. The skin and deep tissue was incised sharply and the blunt trochar was inserted atraumatically. At this point had visualization of the femoral component. A superolateral portal was then established with spinal needle localization just superior and lateral to the patella. A knife was taken down through the skin and soft tissue to enter the knee joint. Starting in the superior compartment above the femoral component and anterior to the femur I released all scarring between the anterior femoral synovium and the overlying extensor mechanism. This was taken through all of any noticeable scar tissue until the superior patellar pouch was fully released and mobile. This resection was carried out mostly with electrocautery as well as shaver. Once this was released fully from lateral to medial superiorly I then continue working down the lateral gutter. All scar tissue in the lateral gutter was released so there is normal space and movement between the capsular tissues and the edge of the femoral component and femur. This area had notable hypertrophy of the tissue with some fraying of the tissue. There was tissue interposed between the femoral component and the polyethylene attached laterally and anteriorly. This synovectomy was taken down through the lateral gutter such that I was able to identify the polyethylene to its posterior corner. Once again, all scar tissue in this area was resected so the polyethylene was easily visible and there is no interposed tissue in the back or the polyethylene was identified. I then continue to work anteriorly. To continue the synovectomy from the lateral compartment to the anterior compartment into the medial compartment, I placed a medial portal under spinal needle localization. Once this was in place it became another working portal and I continued the synovectomy through the anterior compartment to the medial compartment. I was able to debride the hypertrophied tissue anteriorly from the lateral position and work around the medial corner. There was no interposed tissue medially. From the superior approach I was able to fully transect some the synovium to release the soft tissues medially. I then focused around the patella. There was once again some hypertrophied tissue seen around the patella with some thickness. This was debrided with electrocautery as well as the shaver. The arthroscope was brought back into the suprapatellar pouch and the leg was in full extension. The knee was thoroughly irrigated with the arthroscopic fluid on high flow and pressure. Inflow was stopped and excess fluid was removed. The wounds were closed with 4-0 Nylon. 0.25% bupivacaine was injected around the portal sites and into the knee. The wounds were dressed with Xeroform, 4x4 gauze, ABD pad, Kerlix and an ELVER wrap. A cryo-cuff was applied. The patient tolerated the procedure well and was returned to the PACU in a stable condition suffering no known complication.. Date of Procedure: 02/22/25
== END 2025-02-22 14:18 | disposition home or self-care (01) ==
LOC: SUR 09:12
PROVIDERS: PCP Student in an Organized Health Care Education/Training Program; Visit Provider Student in an Organized Health Care Education/Training Program
PROC: (CPT 29870; principal; 2025-02-22 11:15)
DX: T84.82XA Fibrosis due to internal orthopedic prosthetic devices, implants and grafts, initial encounter (principal); I10 Essential (primary) hypertension; J45.909 Unspecified asthma, uncomplicated
CPT/HCPCS: 29876; J0665; J0690; J1100; J2371; J2405; J2704; J3010; J3475

== ENCOUNTER → 2025-03-06 10:40 | Outpatient (BNVA) | payer MEDICARE, OTHER, SELFPAY | PROVIDERS: PCP Student in an Organized Health Care Education/Training Program; Referring Provider Nurse Practitioner Family; Visit Provider Student in an Organized Health Care Education/Training Program | DX: T84.82XA Fibrosis due to internal orthopedic prosthetic devices, implants and grafts, initial encounter (principal); M76.31 Iliotibial band syndrome, right leg | CPT/HCPCS: 99213 ==

== ENCOUNTER 2025-03-06 13:05 | Outpatient (CLI) | payer MEDICARE, OTHER, SELFPAY ==
[2025-03-06 13:12] LABS: Abs Immature Grans 0.03 10^3/uL (0.0-0.06); HCT 34.5 % (36.0-46.0); HGB 11.6 g/dL (11.2-15.7); Immature Grans % 0.5 %; MCH 30.3 pg (27.0-33.0); MCHC 33.6 % (32.0-36.0); MCV 90 fL (80-95); MPV 10.4 fL (8.0-11.0); Platelet Count 266 10^3/uL (130-400); RBC 3.83 10^6/uL (3.93-5.22); RDW 14.0 % (11.7-14.6); RDW-SD 45.3 fL; WBC 6.09 10^3/uL (4.4-10.8)
[2025-03-06 13:50] LABS: ALT 17 U/L (14-59); AST 20 U/L (15-37); Albumin 3.8 g/dL (3.4-5.0); Alkaline Phosphatase 150 U/L (46-116); Anion Gap 12.3 mmol/L (3-11); BUN 29 mg/dL (7-18); Bilirubin, Total 0.6 mg/dL (0.2-1.0); CO2 24.7 mmol/L (21.0-32.0); Calcium 9.3 mg/dL (8.5-10.1); Chloride 102 mmol/L (98-107); Estimated GFR 31.27 (mL/min/1.73m2); Glucose 85 mg/dL (74-106); Potassium 3.6 mmol/L (3.5-5.1); Sodium 139 mmol/L (136-145); Total Protein 7.2 g/dL (6.4-8.2)
== END 2025-03-06 13:06 | disposition home or self-care (01) ==
LOC: LBO 13:06
PROVIDERS: PCP Student in an Organized Health Care Education/Training Program; Visit Provider Internal Medicine Hematology & Oncology
DX: C50.812 Malignant neoplasm of overlapping sites of left female breast (principal)
CPT/HCPCS: 36415; 80053; 85025

== ENCOUNTER 2025-03-14 09:56 | Outpatient (CLI) | payer MEDICARE, OTHER, SELFPAY ==
[2025-03-14 10:18] LABS: Abs Immature Grans 0.01 10^3/uL (0.0-0.06); HCT 32.3 % (36.0-46.0); HGB 10.6 g/dL (11.2-15.7); Immature Grans % 0.4 %; MCH 30.5 pg (27.0-33.0); MCHC 32.8 % (32.0-36.0); MCV 93 fL (80-95); MPV 9.3 fL (8.0-11.0); Platelet Count 231 10^3/uL (130-400); RBC 3.47 10^6/uL (3.93-5.22); RDW 14.1 % (11.7-14.6); RDW-SD 46.9 fL; WBC 2.65 10^3/uL (4.4-10.8)
[2025-03-14 10:53] LABS: ALT 17 U/L (14-59); AST 17 U/L (15-37); Albumin 3.6 g/dL (3.4-5.0); Alkaline Phosphatase 155 U/L (46-116); Anion Gap 9.4 mmol/L (3-11); BUN 20 mg/dL (7-18); Bilirubin, Total 0.4 mg/dL (0.2-1.0); CO2 28.6 mmol/L (21.0-32.0); Calcium 9.7 mg/dL (8.5-10.1); Chloride 104 mmol/L (98-107); Estimated GFR 39.48 (mL/min/1.73m2); Glucose 96 mg/dL (74-106); Potassium 4.2 mmol/L (3.5-5.1); Sodium 142 mmol/L (136-145); Total Protein 6.9 g/dL (6.4-8.2)
== END 2025-03-14 09:57 | disposition home or self-care (01) ==
LOC: LBO 09:57
PROVIDERS: PCP Student in an Organized Health Care Education/Training Program; Visit Provider Internal Medicine Hematology & Oncology
DX: C50.919 Malignant neoplasm of unspecified site of unspecified female breast (principal)
CPT/HCPCS: 36415; 80053; 85025

== ENCOUNTER 2025-03-14 10:17 | Outpatient (CLI) | payer MEDICARE, OTHER, SELFPAY ==
--- NOTE | 2025-03-14 11:00 | RT.EKG_ITS ---
APPROVED REPORT Exam: Resting ECG Reason for Exam: FOLLOW UP Patient Location: O HR:55 bpm ECG Measurements Heart Rate 55 AXIS AZ 174 P 58 QRSd 113 QRS -27 QT 434 T 39 QTc 416 Conclusion Sinus rhythm...normal P axis, V-rate 50- 99 Left anterior fascicular block Late transition
== END 2025-03-14 10:18 | disposition home or self-care (01) ==
PROVIDERS: PCP Student in an Organized Health Care Education/Training Program; Visit Provider Internal Medicine Hematology & Oncology
DX: I44.4 Left anterior fascicular block (principal)
CPT/HCPCS: 93005; 93010

== ENCOUNTER 2025-04-10 01:53 | Outpatient (CLI) | payer MEDICARE, OTHER, SELFPAY ==
[2025-04-10 11:37] LABS: Abs Immature Grans 0.00 10^3/uL (0.0-0.06); HCT 34.6 % (36.0-46.0); HGB 11.4 g/dL (11.2-15.7); Immature Grans % 0.0 %; MCH 32.3 pg (27.0-33.0); MCHC 32.9 % (32.0-36.0); MCV 98 fL (80-95); MPV 9.3 fL (8.0-11.0); Platelet Count 289 10^3/uL (130-400); RBC 3.53 10^6/uL (3.93-5.22); RDW 17.1 % (11.7-14.6); RDW-SD 59.6 fL; WBC 2.44 10^3/uL (4.4-10.8)
[2025-04-10 11:51] LABS: ALT 109 U/L (14-59); AST 51 U/L (15-37); Albumin 3.8 g/dL (3.4-5.0); Alkaline Phosphatase 177 U/L (46-116); Anion Gap 9.4 mmol/L (3-11); BUN 15 mg/dL (7-18); Bilirubin, Total 0.5 mg/dL (0.2-1.0); CO2 29.6 mmol/L (21.0-32.0); Calcium 9.3 mg/dL (8.5-10.1); Chloride 104 mmol/L (98-107); Estimated GFR 43.15 (mL/min/1.73m2); Glucose 106 mg/dL (74-106); Potassium 3.8 mmol/L (3.5-5.1); Sodium 143 mmol/L (136-145); Total Protein 7.2 g/dL (6.4-8.2)
== END 2025-04-10 01:54 | disposition home or self-care (01) ==
LOC: LBO 01:53
PROVIDERS: PCP Student in an Organized Health Care Education/Training Program; Visit Provider Internal Medicine Hematology & Oncology
DX: C50.912 Malignant neoplasm of unspecified site of left female breast (principal)
CPT/HCPCS: 36415; 80053; 85025

== ENCOUNTER 2025-04-10 10:31 | Outpatient (CLI) | payer MEDICARE, OTHER, SELFPAY ==
--- NOTE | 2025-04-10 10:30 | RT.EKG_ITS ---
APPROVED REPORT Exam: Resting ECG Reason for Exam: BREAST CA Patient Location: O HR:57 bpm ECG Measurements Heart Rate 57 AXIS SC 175 P 15 QRSd 87 QRS -29 QT 440 T 56 QTc 429 Conclusion Sinus rhythm...normal P axis, V-rate 50- 99 Borderline left axis deviation...QRS axis (-15,-29) Abnormal R-wave progression, early transition...QRS area>0 in V2
== END 2025-04-10 10:32 | disposition home or self-care (01) ==
PROVIDERS: PCP Student in an Organized Health Care Education/Training Program; Visit Provider Student in an Organized Health Care Education/Training Program
DX: C50.812 Malignant neoplasm of overlapping sites of left female breast (principal)
CPT/HCPCS: 93005; 93010

== ENCOUNTER 2025-05-16 10:26 | Outpatient (CLI) | payer MEDICARE, OTHER, SELFPAY ==
--- NOTE | 2025-05-16 10:15 | RT.EKG_ITS ---
APPROVED REPORT Exam: Resting ECG Reason for Exam: MALIGNANT NEOPLASM Patient Location: O HR:60 bpm ECG Measurements Heart Rate 60 AXIS SD 170 P 13 QRSd 85 QRS -35 QT 424 T 55 QTc 424 Conclusion Sinus rhythm...normal P axis, V-rate 50- 99 Probable left atrial enlargement...P >50mS, <-0.10mV V1 Left anterior fascicular block
== END 2025-05-16 10:27 | disposition home or self-care (01) ==
PROVIDERS: PCP Student in an Organized Health Care Education/Training Program; Visit Provider Nurse Practitioner Family
DX: C50.412 Malignant neoplasm of upper-outer quadrant of left female breast (principal)
CPT/HCPCS: 93005; 93010

== ENCOUNTER 2025-05-16 11:08 | Outpatient (CLI) | payer MEDICARE, OTHER, SELFPAY ==
[2025-05-16 11:22] LABS: Abs Immature Grans 0.01 10^3/uL (0.0-0.06); HCT 36.1 % (36.0-46.0); HGB 11.7 g/dL (11.2-15.7); Immature Grans % 0.4 %; MCH 32.5 pg (27.0-33.0); MCHC 32.4 % (32.0-36.0); MCV 100 fL (80-95); MPV 9.2 fL (8.0-11.0); Platelet Count 239 10^3/uL (130-400); RBC 3.60 10^6/uL (3.93-5.22); RDW 15.0 % (11.7-14.6); RDW-SD 54.4 fL; WBC 2.72 10^3/uL (4.4-10.8)
[2025-05-16 12:18] LABS: ALT 23 U/L (14-59); AST 17 U/L (15-37); Albumin 3.7 g/dL (3.4-5.0); Alkaline Phosphatase 146 U/L (46-116); Anion Gap 6.1 mmol/L (3-11); BUN 26 mg/dL (7-18); Bilirubin, Total 0.4 mg/dL (0.2-1.0); CO2 29.9 mmol/L (21.0-32.0); Calcium 9.2 mg/dL (8.5-10.1); Chloride 104 mmol/L (98-107); Estimated GFR 39.23 (mL/min/1.73m2); Glucose 111 mg/dL (74-106); Potassium 3.9 mmol/L (3.5-5.1); Sodium 140 mmol/L (136-145); Total Protein 7.1 g/dL (6.4-8.2)
== END 2025-05-16 11:09 | disposition home or self-care (01) ==
LOC: LBO 11:09
PROVIDERS: PCP Student in an Organized Health Care Education/Training Program; Visit Provider Internal Medicine Hematology & Oncology
DX: C50.912 Malignant neoplasm of unspecified site of left female breast (principal); Z17.0 Estrogen receptor positive status [ER+]
CPT/HCPCS: 36415; 80053; 85025

== ENCOUNTER 2025-06-28 13:14 | Outpatient (CLI) | payer MEDICARE, OTHER, SELFPAY ==
[2025-06-28 13:34] LABS: Abs Immature Grans 0.00 10^3/uL (0.0-0.06); HCT 38.7 % (36.0-46.0); HGB 13.0 g/dL (11.2-15.7); Immature Grans % 0.0 %; MCH 33.2 pg (27.0-33.0); MCHC 33.6 % (32.0-36.0); MCV 99 fL (80-95); MPV 9.4 fL (8.0-11.0); Platelet Count 258 10^3/uL (130-400); RBC 3.91 10^6/uL (3.93-5.22); RDW 13.2 % (11.7-14.6); RDW-SD 48.1 fL; WBC 3.75 10^3/uL (4.4-10.8)
[2025-06-28 14:10] LABS: ALT 12 U/L (10-49); AST 23 U/L (<34); Albumin 4.6 g/dL (3.2-5.0); Alkaline Phosphatase 153 U/L (46-116); Anion Gap 10.5 mmol/L (3-11); BUN 21 mg/dL (9-23); Bilirubin, Total 0.50 mg/dL (0.2-1.2); CO2 24.5 mmol/L (20.0-31.0); Calcium 10.2 mg/dL (8.3-10.6); Chloride 102 mmol/L (98-107); Glucose 78 mg/dL (74-106); Potassium 4.3 mmol/L (3.5-5.1); Sodium 137 mmol/L (136-145); Total Protein 7.8 g/dL (5.7-8.2)
== END 2025-06-28 13:15 | disposition home or self-care (01) ==
LOC: LBO 13:14
PROVIDERS: PCP Student in an Organized Health Care Education/Training Program; Visit Provider Internal Medicine Hematology & Oncology
DX: C50.812 Malignant neoplasm of overlapping sites of left female breast (principal); Z17.0 Estrogen receptor positive status [ER+]
CPT/HCPCS: 36415; 80053; 85025

== ENCOUNTER 2025-07-03 15:31 | Outpatient (REF) | payer MEDICARE, OTHER, SELFPAY ==
[2025-07-03 22:11] LABS: TSH (W/Ref FT4) 0.63 uIU/mL (0.55-4.78)
== END 2025-07-03 15:32 | disposition home or self-care (01) ==
LOC: NCHCN 15:31
PROVIDERS: PCP Student in an Organized Health Care Education/Training Program; Visit Provider Student in an Organized Health Care Education/Training Program
DX: E03.9 Hypothyroidism, unspecified (principal)
CPT/HCPCS: 84443